=== PATIENT | male | born 1935 | race Caucasian/White ===

== ENCOUNTER 2018-11-03 16:49 | Inpatient (IN) | payer MEDICARE, MEDICAID ==
[~2018-11-03] VITALS: Ht 172.7 cm; Wt 72.6 kg
[2018-11-03 16:50] VITALS: BP 137/53
--- NOTE | 2018-11-03 16:50 | NUR ---
ED Nurse Note: PT BROUGHT IN BY [facility] DUE TO SOB AND PAINFUL COUGH X LAST NIGHT. RR16 WITH O2SAT 96% ON 3L VIA NC AT BEDSIDE. INSPIRATORY AND EXPIRATORY WHEEZING HEARD IN ALL LOBES. NO RETRACTIONS OR NO SIGNS OF RESPIRATORY DISTRESS NOTED.
--- NOTE | 2018-11-03 17:45 | NUR ---
ED Nurse Note: XRAY AT BEDSIDE. PT WOULD LIKE TO WAIT UNTIL SON ARRIVES TO DECIDE IF HE WANTS XRAY OR NOT. XRAY WILL RETURN AT LATER TIME PER PT REQUEST.
--- NOTE | 2018-11-03 17:59 | NUR ---
ED Nurse Note: XRAY CALLED TO RETURN FOR XRAY. WILL RETURN SHORTLY.
--- NOTE | 2018-11-03 18:07 | NUR ---
ED Nurse Note: RT CALLED FOR BREATHING TX.
[2018-11-03 18:12] LABS: ANION GAP 13 mmol/L (5-15); BLOOD UREA NITROGEN 21 mg/dL (7-18); CALCIUM 8.5 MG/DL (8.5-10.1); CARBON DIOXIDE 21 MMOL/L (21-32); CHLORIDE 102 MMOL/L (98-107); CREATININE 1.7 MG/DL (0.55-1.30); POTASSIUM 3.5 MMOL/L (3.5-5.1); SODIUM 136 MMOL/L (136-145)
[2018-11-03] MEDS ORDERED: Albuterol/Ipratropium 3ml neb HHN ONE (18:15)
[2018-11-03 18:19] LABS: HEMATOCRIT 30.9 % (42.0-52.0); HEMOGLOBIN 10.3 G/DL (14.2-18.0); MEAN CORPUSCULAR VOLUME 92 FL (80-99); PLATELET COUNT 126 K/UL (150-450); RED BLOOD COUNT 3.34 M/UL (4.70-6.10); RED CELL DISTRIBUTION WIDTH 13.9 % (11.6-14.8); WHITE BLOOD COUNT 20.4 K/UL (4.8-10.8)
[2018-11-03 18:25] LABS: ALANINE AMINOTRANSFERASE 26 U/L (12-78); ALBUMIN 3.2 G/DL (3.4-5.0); ALBUMIN/GLOBULIN RATIO 0.8 (1.0-2.7); ALKALINE PHOSPHATASE 61 U/L (46-116); ASPARTATE AMINO TRANSFERASE 17 U/L (15-37); BILIRUBIN,TOTAL 0.9 MG/DL (0.2-1.0); CKMB < 0.5 NG/ML (0.0-3.6); CREATINE KINASE 31 U/L (26-308); PHOSPHORUS 1.8 MG/DL (2.5-4.9)
[2018-11-03] MEDS ORDERED: Piperacillin/Tazobactam 3.375 GM in NS 110 ML IVPB ONE (18:45)
[2018-11-03] MEDS ORDERED: Oseltamivir 75mg cap ORAL ONE (18:45)
--- NOTE | 2018-11-03 19:01 | Emergency Room Report ---
History of Present Illness General Chief Complaint: Upper Respiratory Illness Source: Family Member Present Illness HPI Patient is an 83-year-old male brought in by EMS after increased cough and congestion. Patient was noted to have somewhat productive cough. He had prior history of congestive heart failure and had previous watchman procedure. Patient prior history of atrial fibrillation. He is currently taking digoxin. Patient is a type II diabetic as well. He was noted to have prior history of myelodysplastic syndrome. He does not normally have elevated white blood counts. Patient was noted to have onset of symptoms approximately 1 day prior to arrival. He was noted to have increased fever and chills chills and body aches. Allergies: Coded Allergies: No Known Allergies (Unverified , 11/03/18) Patient History Past Medical History: see triage record Reviewed Nursing Documentation: PMH: Agreed; PSxH: Agreed Nursing Documentation-PMH Hx Cardiac Problems: Yes Hx Hypertension: Yes - HIGH CHOLESTEROL Hx Diabetes: Yes Hx Cerebrovascular Accident: Yes Review of Systems All Other Systems: limited - by mental status Physical Exam Vital Signs Date Time Temp Pulse Resp B/P (MAP) Pulse Ox O2 Delivery O2 Flow Rate FiO2 11/03/18 16:45 101.1 104 20 132/63 97 Room Air 11/03/18 16:50 3.0 11/03/18 18:20 32 Sp02 EP Interpretation: reviewed, normal General Appearance: alert, GCS 15, Chronically Ill Head: atraumatic ENT: normal ENT inspection, hearing grossly normal, normal voice Neck: normal inspection, full range of motion, supple, no bony tend Respiratory: normal inspection, no retraction, rhonchi Cardiovascular #1: regular rate, rhythm, no edema Gastrointestinal: normal inspection, normal bowel sounds, non tender, soft, no guarding, no hernia Genitourinary: no CVA tenderness Musculoskeletal: normal inspection, back normal, normal range of motion Neurologic: normal inspection, alert, oriented x3, responsive, podiatric aide III-XII nml as tested, speech normal Psychiatric: normal inspection, judgement/insight normal, mood/affect normal Skin: normal inspection, normal color, no rash Medical Decision Making Diagnostic Impression: Primary Impression: Sepsis Additional Impressions: Influenza A CHF (congestive heart failure) CAD (coronary artery disease) Atrial fibrillation Pneumonia Myelodysplasia (myelodysplastic syndrome) ER Course Patient presented for shortness of breath. Differential included but was not limited to anemia, pneumonia, pneumothorax, myocardial infarction, pericardial effusion, congestive heart failure, acidosis. Because of complexity of patient' s case laboratory testing and imaging studies were ordered. EKG interpreted by me showed atrial fibrillation with a rate of [address] or T wave changes. Patient was noted to have some digoxin effect. QTC was noted to be slightly prolonged at 503. Patient was started on IV fluids as well as IV antibiotics. Patient was discussed with his primary care physician Dr. Ileana Rodríguez. Patient was noted to have prior history of congestive heart failure and takes digoxin regularly. He is also anticoagulated with Plavix. He has had single vessel stent placement. Patient was started on IV fluids. Lactic acid level was noted to be elevated. He is also given Tamiflu as well as antibiotics IV. Patient's was noted to have been exposed to influenza and will be given a prophylactic prescription for Tamiflu. Dr. Leonard Ortiz was contacted for inpatient management due to panel physician. Labs Test 11/03/18 17:49 White Blood Count 20.4 K/UL (4.8-10.8) Red Blood Count 3.34 M/UL (4.70-6.10) Hemoglobin 10.3 G/DL (14.2-18.0) Hematocrit 30.9 % (42.0-52.0) Mean Corpuscular Volume 92 FL (80-99) Mean Corpuscular Hemoglobin 30.9 PG (27.0-31.0) Mean Corpuscular Hemoglobin Concent 33.4 G/DL (32.0-36.0) Red Cell Distribution Width 13.9 % (11.6-14.8) Platelet Count 126 K/UL (150-450) Mean Platelet Volume 7.2 FL (6.5-10.1) Neutrophils (%) (Auto) % (45.0-75.0) Lymphocytes (%) (Auto) % (20.0-45.0) Monocytes (%) (Auto) % (1.0-10.0) Eosinophils (%) (Auto) % (0.0-3.0) Basophils (%) (Auto) % (0.0-2.0) Sodium Level 136 MMOL/L (136-145) Potassium Level 3.5 MMOL/L (3.5-5.1) Chloride Level 102 MMOL/L (98-107) Carbon Dioxide Level 21 MMOL/L (21-32) Anion Gap 13 mmol/L (5-15) Blood Urea Nitrogen 21 mg/dL (7-18) Creatinine 1.7 MG/DL (0.55-1.30) Estimat Glomerular Filtration Rate mL/min (>60) Glucose Level 277 MG/DL (74-106) Lactic Acid Level 3.70 mmol/L (0.4-2.0) Calcium Level 8.5 MG/DL (8.5-10.1) Phosphorus Level 1.8 MG/DL (2.5-4.9) Magnesium Level 0.9 MG/DL (1.8-2.4) Total Bilirubin 0.9 MG/DL (0.2-1.0) Aspartate Amino Transf (AST/SGOT) 17 U/L (15-37) Alanine Aminotransferase (ALT/SGPT) 26 U/L (12-78) Alkaline Phosphatase 61 U/L (46-116) Total Creatine Kinase 31 U/L (26-308) Creatine Kinase MB < 0.5 NG/ML (0.0-3.6) Creatine Kinase MB Relative Index 1.6 Troponin I 0.014 ng/mL (0.000-0.056) Total Protein 7.0 G/DL (6.4-8.2) Albumin 3.2 G/DL (3.4-5.0) Globulin 3.8 g/dL Albumin/Globulin Ratio 0.8 (1.0-2.7) EKG Diagnostic Results Rate: other - atrial fibrillation Rhythm: NSR Rhythm Strip Diag. Results EP Interpretation: yes Rhythm: no PVC's, no ectopy Last Vital Signs Date Time Temp Pulse Resp B/P (MAP) Pulse Ox O2 Delivery O2 Flow Rate FiO2 11/03/18 18:21 32 11/03/18 18:20 88 24 98 Nasal Cannula 11/03/18 16:50 3.0 11/03/18 16:50 99.1 137/53 Status: unchanged Disposition: ADMITTED INPATIENT Scripts Unable to Obtain Active Prescriptions or Reported Meds Referrals: NON PHYSICIAN (PCP) Hugh Khoury MD Nov 03, 2018 19:01
--- NOTE | 2018-11-03 19:16 | NUR ---
ED Nurse Note: REPORT GIVEN TO KEVIN TIJERINA.
--- NOTE | 2018-11-03 19:17 | NUR ---
ED Nurse Note: Received report from Wilton/KEVIN. Pt is A/O X 3. Waiting for bed to transfer.
[2018-11-03 22:10] LABS: APPEARANCE,URINE CLEAR; BILIRUBIN, URINE NEGATIVE (NEGATIVE); COLOR,URINE PALE YELLOW; GLUCOSE, URINE (UA) 4+ (NEGATIVE); KETONES,URINE NEGATIVE (NEGATIVE); LEUKOCYTE ESTERASE ,URINE NEGATIVE (NEGATIVE); NITRITE,URINE NEGATIVE (NEGATIVE); PH,URINE 5 (4.5-8.0); PROTEIN,URINE 2+ (NEGATIVE); UROBILINOGEN,URINE NORMAL MG/DL (0.0-1.0)
--- NOTE | 2018-11-03 22:35 | NUR ---
TRANSFER TO FLOOR: Patient transferred to / as ordered. Report given to Berenice/KEVIN. Belongings sent with Pt and rechecked with RN.
[2018-11-03 22:40] VITALS: BP 103/54
--- NOTE | 2018-11-03 22:53 | NUR ---
NURSE NOTES: NURSE NOTES: Received pt from KEVIN Waters. Pt awake, alert, and answering questions appropriately. Pts whole body is shaking and lab called with the pts lactic acid results of 4.0. Magnesium 0.9. Called and informed Dr. Ortiz. Skin intact. Pt has wet cough and is tachycardic. Will continue to monitor.
--- NOTE | 2018-11-03 23:00 | NUR ---
NURSE NOTES: Dr. Ortiz called back with the following orders: - Resume home orders - tamiflu 75 bid po - zosyn 3.375g iv q6 - vanco iv per pharm X7 days - levaquin 500mg po/gt qd X7 days - tylenol 650 mg Q4 prn - protonix 40mg qd - mylanta 30cc q4 prn - mom 30cc qd prn - 2gm mag sulfate iv over 1 hr - cbc, bmp in am - mag and chest xray - soft cardiac diet - 2 liters oxygen - heparin sq 5000 u bid Transfer to RUFINA KEVIN Roldan Will input orders and will continue to monitor.
[2018-11-03] MEDS ORDERED: Milk of Magnesia 30ml Ud ORAL PRN (23:45)
[2018-11-04 00:50] VITALS: BP 127/57
--- NOTE | 2018-11-04 00:50 | NUR ---
HAND-OFF: Report given to KEVIN Covarrubias. Pt stable.
--- NOTE | 2018-11-04 00:51 | NUR ---
NURSE NOTES: Received a patient in a stable condition,no c/o pain,no respiratory distress noted,tolerated r/air well,lungs diminished sound in an auscultation,BS active in all quadrants,A-Fib on a hospital monitor,A&O x4,IV intact,skin intact,pt is positive for Influenza A,bed in a low safety position,call light within a reach,will continue to monitor and follow POC.Belongings list signed.
[2018-11-04] MEDS ORDERED: Piperacillin/Tazobactam 3.375 GM in D5W 110 ML IVPB SCH (01:00)
--- NOTE | 2018-11-04 01:15 | History and Physical Report ---
DATE OF ADMISSION: 11/03/2018 PULMONARY EVALUATION: REASON FOR ADMISSION: Congestion heart failure, positive influenza, respiratory insufficiency. HISTORY: The patient is an 83-year-old male presents through the emergency room. The patient with increasing cough and congestion. The patient also with history of CHF and history of atrial fibrillation. The patient is a type 2 diabetic who is a fair historian. He does have history of myelodysplastic syndrome. The patient was seen and evaluated in the emergency room and did test positive for influenza. The patient currently being admitted for the above. The patient's events are fairly acute subacute in nature. PAST MEDICAL HISTORY: Influenza A positive presently, myelodysplastic syndrome, atrial fibrillation, CAD, and CHF. MEDICATIONS: Reviewed. ALLERGIES: Reviewed. SOCIAL HISTORY: Nonsmoker and nondrinker. The patient is retired. He is of [place] descent. PHYSICAL EXAMINATION: GENERAL: An ill-appearing male. VITAL SIGNS: Blood pressure 132/53, 103/91, saturation 98%, and respiratory rate 16. HEENT: Negative. Oropharynx not injected. NECK: Supple. LUNGS: Moderate breath sounds. Crackles on both bases. CARDIAC: Normal S1, S2. Soft systolic murmur. Regular rate and rhythm. ABDOMEN: Soft and nontender. EXTREMITIES: No cyanosis or clubbing. There is mild edema. NEUROLOGIC: Grossly nonfocal. LABORATORY DATA: Reviewed. White cell count 20, hematocrit 30.9, and platelets 126. Chemistries noted. BUN 21 and creatinine 1.7. Magnesium 0.9. Albumin 3.2. Lactic acid 3.7. IMPRESSION: CHF, atrial fibrillation, leukocytosis, possible pneumonia, positive influenza, thrombocytopenia, hypomagnesemia, mild protein-calorie malnutrition, probable chronic renal failure. RECOMMENDATIONS: Supportive care. Resume medications. Empiric antibiotics. Tamiflu. Isolation. Follow fluid status. Monitor renal function. Cardiology evaluation to assist. We will reassess and recommend further and we will follow clinically for further changes intervention and discharge once improved. Leonard Ortiz M.D. DR: RUBA JOB#: [id number] CC: SHANNON
[2018-11-04] MEDS: NS w/KCl 20mEq 1000ml 1,000 ML IV SCH ×3 (01:30→20:27)
[2018-11-04] MEDS ORDERED: Vancomycin 1.5gm/D5W Premix 250 ML IVPB SCH (02:00)
[2018-11-04] MEDS: Piperacillin/Tazobactam 2.25 GM in NS 55 ML IV SCH ×2 (02:22→05:55)
--- NOTE | 2018-11-04 03:30 | Consultation ---
DATE OF CONSULTATION: 11/03/2018 CARDIOLOGY CONSULT CONSULTING PHYSICIAN: Rony Butler M.D. REQUESTING PHYSICIAN: Leonard Ortiz M.D. and Russell Spears M.D. REASON FOR CONSULT: Congestive heart failure and atrial fibrillation in the setting of the influenza A, sepsis, and lactic acidosis. HISTORY OF PRESENT ILLNESS: This 83-year-old male came into the emergency room with cough and congestion. He was noted to have a positive influenza A swab. He had laboratory studies suggestive of significant comorbidities and abnormalities. I have been asked to assist with further care. The patient did not complain of any chest pain or shortness of breath. PAST MEDICAL HISTORY: 1. Myelodysplastic syndrome. 2. Paroxysmal atrial fibrillation. 3. Coronary artery disease with history of coronary stent. 4. Diastolic dysfunction with history of congestive heart failure. 5. Hypertension. 6. History of cerebrovascular accident. 7. Hyperlipidemia. ALLERGIES: None. MEDICATIONS: Prior to admission, reviewed and reconciled. FAMILY HISTORY: Noncontributory. REVIEW OF SYSTEMS: Not reliably obtained at this time due to patient's medical condition. PHYSICAL EXAMINATION: VITAL SIGNS: Temperature 101.1, blood pressure 132/63, pulse 104, respiratory rate 20, and room air oxygen saturation 97%. Ill-appearing. Monitored. Not with respiratory distress. Nasal drainage. LUNGS: Bilateral rhonchi. HEART: Irregularly irregular rhythm. Normal S1, S2. No murmur. ABDOMEN: Soft, nontender. EXTREMITIES: Good pulses. No edema. Capillary refill is diminished. LABORATORY DATA: White count 20, hemoglobin 10. Sodium 136, potassium 3.5, bicarbonate 21, BUN 21, creatinine 1.7. Glucose 277, lactic acid 3.7. Troponin 0.014, albumin 3.2. Magnesium level 0.9. EKG reveals atrial fibrillation, nonspecific ST-T wave changes. Chest x-ray pending. IMPRESSION: 1. Critical condition, guarded prognosis. 2. Influenza A pneumonia and sepsis. 3. History of myelodysplastic syndrome with immunocompromised state 4. Leukocytosis. 5. Paroxysmal atrial fibrillation with rapid ventricular response, physiologically appropriate at this time. 6. Coronary artery disease with history of coronary stent and stable angina. 7. Hypertensive heart disease with chronic diastolic congestive heart failure. 8. Lactic acidosis. 9. Acute on possibly chronic kidney failure. 10. Severe hypomagnesemia. 11. Mild protein-calorie malnutrition. 12. Thrombocytopenia. PLAN: 1. ICU care. 2. Saline hydration. 3. Tamiflu therapy. 4. Respiratory hygiene. 5. Isolation precautions. 6. Continue serial lactic acid levels. 7. Intravenous magnesium replacement. 8. Beta-blockade for rate control and antianginal benefits. 9. Hold anti-platelet and anticoagulant therapy in view of high bleeding risk. Rony Butler M.D. DR: KRISTINE JOB#: [id number] CC:
--- NOTE | 2018-11-04 07:09 | NUR ---
HAND-OFF: Report given to KEVIN Lee.Patient stable.
--- NOTE | 2018-11-04 07:10 | NUR ---
NURSE NOTES: Received patient from KEVIN Covarrubias. Patient in bed and awake. In room air. gambling monitor in placed. IV sites are asymptomatic and running NS w/ 20meqKCL at 100 cc/hour. Bed in lowest position with side rails up. Will continue to follow plan of care.
--- NOTE | 2018-11-04 07:39 | Pulmonology Progress Note ---
Assessment/Plan Assessment/Plan IMPRESSION: CHF, atrial fibrillation, leukocytosis, possible pneumonia, positive influenza, thrombocytopenia, hypomagnesemia, mild protein-calorie malnutrition, probable chronic renal failure. PLAN care noted iv antibiotics respiratory care oxygen monitor as is ID evaluation impression, plan, and exam edited and reviewed in detail care discussed with RN Subjective Allergies: Coded Allergies: No Known Allergies (Unverified , 11/03/18) Subjective care noted and reviewed cards noted Objective Last 24 Hour Vital Signs Date Time Temp Pulse Resp B/P (MAP) Pulse Ox O2 Delivery O2 Flow Rate FiO2 11/04/18 03:38 74 11/04/18 00:50 98.2 89 127/57 (80) 95 11/04/18 00:05 98.2 11/04/18 00:02 Room Air 11/03/18 23:14 94 11/03/18 22:40 100.3 104 103/54 (70) 98 11/03/18 22:30 99.0 95 20 131/61 95 Nasal Cannula 2.0 32 11/03/18 20:42 92 20 95 Nasal Cannula 2.0 32 11/03/18 18:21 32 11/03/18 18:20 88 24 98 Nasal Cannula 32 11/03/18 16:50 103 16 Nasal Cannula 3.0 11/03/18 16:50 99.1 103 16 137/53 98 Nasal Cannula 3.0 11/03/18 16:45 101.1 104 20 132/63 97 Room Air Intake and Output 11/03/18 11/04/18 19:00 07:00 Intake Total 1000 ml 1075 ml Output Total 200 ml Balance 1000 ml 875 ml Intake Oral 120 ml IV Total 1000 ml 955 ml Output Urine Total 200 ml # Voids 1 Objective PHYSICAL EXAMINATION: GENERAL: An ill-appearing male. HEENT: Negative. Oropharynx not injected. NECK: Supple. LUNGS: Moderate breath sounds. Crackles on both bases. CARDIAC: Normal S1, S2. Soft systolic murmur. Regular rate and rhythm. ABDOMEN: Soft and nontender. EXTREMITIES: No cyanosis or clubbing. There is mild edema. NEUROLOGIC: Grossly nonfocal. Microbiology Date/Time Source Procedure Growth Status 11/03/18 17:49 Nasal Nares Influenza Types A,B Antigen (ARLINE) - Final Complete Laboratory Tests 11/03/18 17:49: White Blood Count 20.4H, Red Blood Count 3.34L, Hemoglobin 10.3L, Hematocrit 30.9L, Mean Corpuscular Volume 92, Mean Corpuscular Hemoglobin 30.9, Mean Corpuscular Hemoglobin Concent 33.4, Red Cell Distribution Width 13.9, Platelet Count 126L, Mean Platelet Volume 7.2, Neutrophils (%) (Auto) , Lymphocytes (%) ( Auto) , Monocytes (%) (Auto) , Eosinophils (%) (Auto) , Basophils (%) (Auto) , Differential Total Cells Counted 100, Neutrophils % (Manual) 84H, Lymphocytes % (Manual) 5L, Monocytes % (Manual) 9, Eosinophils % (Manual) 0, Basophils % ( Manual) 0, Band Neutrophils 2, Platelet Estimate DecreasedL, Platelet Morphology Normal, Hypochromasia 1+, Anisocytosis 1+, Sodium Level 136, Potassium Level 3.5, Chloride Level 102, Carbon Dioxide Level 21, Anion Gap 13, Blood Urea Nitrogen 21H, Creatinine 1.7H, Estimat Glomerular Filtration Rate , Glucose Level 277H, Lactic Acid Level 3.70H, Calcium Level 8.5, Phosphorus Level 1.8L, Magnesium Level 0.9*L, Total Bilirubin 0.9, Aspartate Amino Transf ( AST/SGOT) 17, Alanine Aminotransferase (ALT/SGPT) 26, Alkaline Phosphatase 61, Total Creatine Kinase 31, Creatine Kinase MB < 0.5, Creatine Kinase MB Relative Index 1.6, Troponin I 0.014, Total Protein 7.0, Albumin 3.2L, Globulin 3.8, Albumin/Globulin Ratio 0.8L 11/03/18 21:40: Urine Color Pale yellow, Urine Appearance Clear, Urine pH 5, Urine Specific [place] 1.015, Urine Protein 2+H, Urine Glucose (UA) 4+H, Urine Ketones Negative , Urine Blood 1+H, Urine Nitrite Negative, Urine Bilirubin Negative, Urine Urobilinogen Normal, Urine Leukocyte Esterase Negative, Urine RBC 2-4H, Urine WBC 0-2, Urine Squamous Epithelial Cells None, Urine Bacteria Few 11/03/18 21:45: Lactic Acid Level 4.10H Current Medications Medications (Trade) Dose Ordered Sig/Regi Route PRN Reason Start Time Stop Time Status Last Admin Dose Admin Acetaminophen (Tylenol) 650 mg Q4H PRN ORAL Mild Pain/Temp > 100.5 11/03/18 23:45 12/03/18 23:44 11/04/18 00:35 Al Hydroxide/Mg Hydroxide (Mylanta) 30 ml Q4HR PRN ORAL Abdominal cramps 11/03/18 23:45 12/03/18 23:44 Heparin Sodium (Porcine) (Heparin 5000 units/ml) 5,000 units BID SUBQ 11/04/18 09:00 12/04/18 08:59 UNV Levofloxacin (Levaquin) 250 mg DAILY ORAL 11/05/18 09:00 11/12/18 08:59 Levofloxacin (Levaquin) 500 mg DAILY ORAL 11/04/18 09:00 11/04/18 09:01 Magnesium Hydroxide (Mom) 30 ml DAILYPRN PRN ORAL Constipation 11/03/18 23:45 12/03/18 23:44 Metoprolol Tartrate (Lopressor) 25 mg Q12HR ORAL 11/04/18 09:00 12/04/18 08:59 Oseltamivir Phosphate (Tamiflu) 75 mg BID ORAL 11/04/18 09:00 11/09/18 08:59 Pantoprazole (Protonix) 40 mg DAILY ORAL 11/04/18 09:00 12/04/18 08:59 Piperacillin Sod/ Tazobactam Sod 2.25 gm/Sodium Chloride 55 ml @ 110 mls/hr Q6H IV 11/04/18 00:10 11/11/18 00:09 11/04/18 05:55 Sodium Chloride 1,000 ml @ 100 mls/hr Q10H IV 11/04/18 00:15 12/04/18 00:14 11/04/18 01:30 Vancomycin HCl (Vanco rx to dose) 1 ea DAILY MISC 11/04/18 09:00 11/11/18 08:59 Vancomycin HCl/ Dextrose 250 ml @ 167 mls/hr Q24H IVPB 11/04/18 02:00 11/09/18 01:59 11/04/18 03:10 Leonard Ortiz MD Nov 04, 2018 07:39
[2018-11-04 07:55] LABS: HEMATOCRIT 29.1 % (42.0-52.0); HEMOGLOBIN 9.8 G/DL (14.2-18.0); MEAN CORPUSCULAR VOLUME 92 FL (80-99); PLATELET COUNT 112 K/UL (150-450); RED BLOOD COUNT 3.14 M/UL (4.70-6.10); RED CELL DISTRIBUTION WIDTH 14.5 % (11.6-14.8); WHITE BLOOD COUNT 17.6 K/UL (4.8-10.8)
[2018-11-04 08:00] VITALS: BP 115/53
[2018-11-04 08:07] LABS: ANION GAP 11 mmol/L (5-15); BLOOD UREA NITROGEN 22 mg/dL (7-18); CALCIUM 8.6 MG/DL (8.5-10.1); CARBON DIOXIDE 23 MMOL/L (21-32); CHLORIDE 101 MMOL/L (98-107); CREATININE 1.6 MG/DL (0.55-1.30); POTASSIUM 4.1 MMOL/L (3.5-5.1); SODIUM 135 MMOL/L (136-145)
[2018-11-04] MEDS: Metoprolol 25mg tab ORAL SCH ×2 (08:37→20:25)
--- NOTE | 2018-11-04 08:45 | NUR ---
NURSE NOTES: Left a message to Dr. Butler for Troponin 0.224. Awaiting for call back.
--- NOTE | 2018-11-04 08:46 | NUR ---
RADIOLOGY DEPT CHEST X-RAY DONE.-P.DYE
[2018-11-04] MEDS ORDERED: Levofloxacin 500mg tab ORAL SCH (09:00)
[2018-11-04] MEDS ORDERED: Oseltamivir 75mg cap ORAL SCH (09:00)
--- NOTE | 2018-11-04 09:01 | NUR ---
CASE MANAGEMENT NOTES PATIENT IS CURRENTLY ON HOME HEALTH WITH [facility] P:[phone] F:[phone]
[2018-11-04] MEDS: Heparin 5000 units/ml inj SUBQ SCH ×2 (10:43→20:24)
--- NOTE | 2018-11-04 11:17 | Diagnostic Imaging Report ---
Indication: Dyspnea Comparison: None A single view chest radiograph was obtained. Findings: Sternotomy noted. No definite infiltrate or pulmonary vascular congestion identified. The heart is enlarged. The aorta is mildly enlarged consistent with atherosclerotic vascular disease. The bones are osteopenic. Impression: No acute disease
--- NOTE | 2018-11-04 11:38 | Diagnostic Imaging Report ---
Indication: Cough Comparison: 11/03/2018 A single view chest radiograph was obtained. Findings: Slightly increasing right basilar density noted. Left basilar retrocardiac density also demonstrated. Heart size is stable. Sternotomy again noted. IMPRESSION: Query developing infiltrate in the right lung base. Correlate clinically. Recommend follow-up.
[2018-11-04 12:00] VITALS: BP 118/62
--- NOTE | 2018-11-04 14:18 | NUR ---
CASE MANAGEMENT: REVIEW 83/M BIBA FROM HOME CC: UPPER RESP ILLNESS SI: INFLUENZA . CHF . MYELODYSPLASIA T 101.1 HR 104 RR 24 BP 137/53 SAT 95% NC/3L WBC 20.4 NA 135 BUN 22 CR 1.6 TROPONIN I 0.224 IS: NS IVF BOLUS X1 ALBUTEROL HHN X1 TAMIFLU PO X1 ZOSYN IV X1 INTERQUAL CRITERIA MET: PATIENT ADMITTED TO STEP DOWN UNIT 11/03/2018 DCP: PATIENT IS FROM HOME
[2018-11-04 16:00] VITALS: BP 132/64
--- NOTE | 2018-11-04 16:15 | Consultation ---
DATE OF CONSULTATION: 11/04/2018 INFECTIOUS DISEASE CONSULTATION CONSULTING PHYSICIAN: Alayna Wolfe M.D. REFERRING PHYSICIAN: Leonard Ortiz M.D. REASON FOR CONSULTATION: Influenza A. HISTORY OF PRESENT ILLNESS: This is an 83-year-old gentleman with history of influenza A diagnosed recently, myelodysplastic syndrome, coronary artery disease, congestive heart failure, and atrial fibrillation, who came in with increasing cough and congestion. He was seen in the emergency room and was tested positive for influenza, and Infectious Disease consultation has been obtained for antibiotics. PAST MEDICAL HISTORY: 1. History of myelodysplastic syndrome. 2. Coronary artery disease. 3. Congestive heart failure. 4. Atrial fibrillation. 5. Influenza A. 6. Diabetes. SOCIAL HISTORY: He does not smoke, drink, or use drugs. FAMILY HISTORY: Unknown. REVIEW OF SYSTEMS: Unable to obtain currently. MEDICATIONS: As an inpatient, he is on Levaquin, Tamiflu, subcutaneous heparin, IV vancomycin, Protonix, metoprolol, Zosyn, Tylenol, Mylanta, and milk of magnesia. ALLERGIES: No known drug allergies. PHYSICAL EXAMINATION: VITAL SIGNS: Temperature 98.1, T-max of 101.1, pulse 67, respiratory rate 20, and blood pressure 115/53. O2 saturation of 93%. HEENT: Pupils are equally reactive to light and accommodation. Mouth appears clean without thrush. NECK: Supple. No adenopathy. No JVD. CARDIOVASCULAR: Regular rate and rhythm. No murmurs. LUNGS: Clear to auscultation bilaterally. No crackles. No wheezes. ABDOMEN: Soft and nontender. No organomegaly. EXTREMITIES: No cyanosis, no clubbing, no edema. LABORATORY AND DIAGNOSTIC DATA: White count of 20 on 11/03/2018. White count of 17.6 on 11/04/2018, hemoglobin 9.8, hematocrit 29.1, MCV 92, and platelet count 112,000. Neutrophils of 82%. Sodium 135, potassium 4.1, chloride 101, bicarb 23, BUN 22, and creatinine 1.6. Glucose 283. Calcium 8.6. 0.224. Total bilirubin 0.9, AST 17, ALT 26, and alkaline phosphatase 61. CK of 31, CK-MB less than 0.5. Troponin 0.014. Total protein 7, albumin 3.2. UA showing 0 to 2 white cells. Nasal swab was positive for influenza A. ASSESSMENT: This is an 83-year-old gentleman with history of myelodysplastic syndrome, hypertension, hypercholesterolemia, and diabetes, who comes in with cough and is found to have, 1. Influenza A upper respiratory infection. 2. Diabetes. 3. Myelodysplastic syndrome. PLAN: 1. Continue Tamiflu. 2. Continue Levaquin. 3. Continue vancomycin. 4. Discontinue Zosyn. 5. We will order sputum for Gram stain and culture. 6. We will follow up cultures and adjust antibiotics accordingly. I would like to thank, Dr. Ortiz, for this consultation. Alayna Wolfe M.D. DR: SIERRA JOB#: [id number] CC:
[2018-11-04] MEDS: NovoLOG Insulin Flexpen SUBQ SCH ×2 (16:39→20:25)
--- NOTE | 2018-11-04 18:15 | Consultation ---
DATE OF CONSULTATION: 11/04/2018 NEPHROLOGY CONSULTATION CONSULTING PHYSICIAN: Axel Meyers M.D. ATTENDING PHYSICIAN: Leonard Ortiz M.D. REASON FOR CONSULTATION: Elevated BUN and creatinine. HISTORY OF PRESENT ILLNESS: This is an 83-year-old male who was admitted due to cough and congestion and turned out to have influenza. I am asked to see the patient for elevation of BUN and creatinine. The patient is rather a poor historian. PAST MEDICAL HISTORY: 1. Myelodysplastic syndrome. 2. Chronic atrial fibrillation. 3. Coronary artery disease. 4. Congestive heart failure. MEDICATIONS: 1. Intermittent magnesium sulfate IV piggyback. 2. IV fluid. 3. IV Zosyn. 4. Vancomycin. 5. Tylenol p.r.n. 6. Klonopin. 7. DuoNeb inhalation. 8. Subcutaneous heparin. 9. IV Levaquin. 10. Metoprolol slow-release. 11. Mylanta. 12. Tamiflu. 13. Protonix. ALLERGIES: No known drug allergies. FAMILY HISTORY: Unremarkable. SOCIAL HISTORY: The patient lives at home. HABITS: He is nonsmoker and nondrinker. There is no history of illicit drug abuse. REVIEW OF SYSTEMS: HEENT: Hearing and eyesight are normal. ENDOCRINE: No history of diabetes, thyroid or adrenal problems. GENITOURINARY: He denies dysuria, frequency, urgency, or hematuria. NEUROLOGIC: No history of stroke, syncope, or Parkinson disease. CARDIOVASCULAR: Denies chest pain or palpitations. PHYSICAL EXAMINATION: GENERAL: This is an elderly male, who is in no acute distress. VITAL SIGNS: Blood pressure 118/62, pulse 74 and irregular, respirations 18, and temperature 97 axillary. HEENT: The head is normocephalic and atraumatic. Pupils are equal, round, and reactive to light and accommodation consensually. NECK: Supple. Trachea midline. There was no lymphadenopathy or thyromegaly. LUNGS: Clear to auscultation and percussion. HEART: Irregularly irregular. ABDOMEN: Soft and nontender. Bowel sounds were active. EXTREMITIES: No clubbing, cyanosis, or edema. NEUROLOGICAL: He is alert and oriented x4. Cranial nerves II through XII intact. LABORATORY AND ANCILLARY DATA: Electrolytes within normal limits. BUN 22, creatinine 1.6. Chest x-ray with slightly increasing right basilar density, retrocardiac density. EKG, atrial fibrillation. ASSESSMENT: 1. Most likely chronic kidney disease, etiology unclear. 2. Myelodysplastic syndrome. 3. Chronic atrial fibrillation. 4. Coronary artery disease. 5. Congestive heart failure. PLAN: 1. Repeat chemistry. 2. Obtain renal ultrasound. Thank you, Dr. Ortiz, for letting me to participate in the care of this patient. Axel Meyers M.D. DR: Sona JOB#: [id number] CC: SHANNON
--- NOTE | 2018-11-04 18:45 | Progress Note ---
DATE: 11/04/2018 CARDIOLOGY PROGRESS NOTE: SUBJECTIVE: The patient remains in atrial fibrillation with better rate control. He is on antimicrobials and respiratory hygiene. He continues with IV fluid hydration and cardiac monitoring. Lactic acid levels have normalized. PHYSICAL EXAMINATION: VITAL SIGNS: Blood pressure 118/62, pulse 74, respiratory rate 18, and afebrile. LUNGS: Coarse breath sounds. Scattered rhonchi. HEART: Irregularly irregular rhythm. Normal S1, S2. ABDOMEN: Soft. EXTREMITIES: Trace edema. LABORATORY DATA: Sodium 135, potassium 4.1, bicarbonate 23, BUN 22, creatinine 1.6, and glucose 283. Troponin 0.224. White count has decreased from 20 to 17.6, hemoglobin 9.8, and platelet count 112,000. IMPRESSION: 1. Influenza upper respiratory infection and possible pneumonia. 2. Myelodysplastic syndrome. 3. Type 2 diabetes mellitus. 4. Acute myocardial ischemia. 5. Paroxysmal atrial fibrillation. 6. Chronic diastolic congestive heart failure. 7. Acute kidney injury, resolved. 8. Lactic acidosis. PLAN: 1. Adjust IV fluids. 2. Continue antivirals. 3. Respiratory hygiene. 4. Continue beta-samuel. 5. No anti-platelet or anticoagulation due to bleeding risk with myelodysplastic syndrome and thrombocytopenia. 6. Continue cardiac monitoring. 7. We will follow. Rony Butler M.D. DR: HORTENCIA JOB#: [id number] CC:
--- NOTE | 2018-11-04 19:15 | NUR ---
NURSE NOTES: Bedside report received from KEVIN Lee. Pt currently receiving ABD US at bedside. AOx4, able to make needs known. LFA 22 running NS 20 meq KCl @ 100; asymptomatic. LW 22, SL. court recording monitor showing afib, controlled; asymptomatic. Skin is clean and dry. Bed is locked in lowest position, side rails x3, bed alarm on, call mcgowan within reach. Will continue to monitor and follow plan of care. Luke aware of troponin, additional troponin ordered for tomorrow AM. Pt on antibiotics for increased WBC.
[2018-11-04 20:00] VITALS: BP 114/52
[2018-11-05] VITALS: BP 140/69
[2018-11-05] MEDS ORDERED: Vancomycin 500mg/D5W 110ml IVPB SCH ×2 (03:00)
[2018-11-05 04:00] VITALS: BP 152/66
[2018-11-05 05:48] LABS: BASOPHILS % (AUTO) 0.3 % (0.0-2.0); EOSINOPHILS % (AUTO) 0.8 % (0.0-3.0); HEMATOCRIT 27.7 % (42.0-52.0); LYMPHOCYTES % (AUTO) 18.3 % (20.0-45.0); MEAN CORPUSCULAR VOLUME 93 FL (80-99); MONOCYTES % (AUTO) 7.9 % (1.0-10.0); NEUTROPHILS % (AUTO) 72.7 % (45.0-75.0); PLATELET COUNT 101 K/UL (150-450); RED BLOOD COUNT 2.96 M/UL (4.70-6.10); RED CELL DISTRIBUTION WIDTH 13.8 % (11.6-14.8); WHITE BLOOD COUNT 7.3 K/UL (4.8-10.8)
[2018-11-05] MEDS: NovoLOG Insulin Flexpen SUBQ SCH ×4 (06:27→20:31)
[2018-11-05] MEDS: NS w/KCl 20mEq 1000ml 1,000 ML IV SCH ×3 (06:28→20:36)
[2018-11-05 06:30] LABS: ANION GAP 10 mmol/L (5-15); BLOOD UREA NITROGEN 26 mg/dL (7-18); CALCIUM 8.5 MG/DL (8.5-10.1); CARBON DIOXIDE 22 MMOL/L (21-32); CHLORIDE 107 MMOL/L (98-107); CREATININE 1.5 MG/DL (0.55-1.30); POTASSIUM 4.3 MMOL/L (3.5-5.1); SODIUM 139 MMOL/L (136-145)
--- NOTE | 2018-11-05 07:10 | NUR ---
NURSE NOTES: Paged Dr. Butler regarding Troponin. Awaiting orders. Will continue to monitor and follow plan of care.
--- NOTE | 2018-11-05 07:14 | NUR ---
HAND-OFF: Report given to KEVIN Lee.
--- NOTE | 2018-11-05 07:15 | NUR ---
NURSE NOTES: Received patient from KEVIN Pena. Patient in bed and asleep. In room air. No SOB. Respirations are even and unlaboured. personnel monitor in placed. IV sites are asymptomatic, currently running NS with 20meqKCL at 100cc/hour. Troponin is trending up 0.342, Per PM nurse will paged Dr. Butler. Bed in lowest position with side rails up. Will continue to follow plan of care.
--- NOTE | 2018-11-05 07:41 | General Progress Note ---
Assessment/Plan Problem List: (1) Influenza A ICD Codes: J10.1 - Influenza due to other identified influenza virus with other respiratory manifestations SNOMED: 638031999 (2) Myelodysplasia (myelodysplastic syndrome) ICD Codes: D46.9 - Myelodysplastic syndrome, unspecified SNOMED: 879091190 (3) Atrial fibrillation ICD Codes: I48.91 - Unspecified atrial fibrillation SNOMED: 93074524 (4) CHF (congestive heart failure) ICD Codes: I50.9 - Heart failure, unspecified SNOMED: 63524439 (5) CAD (coronary artery disease) ICD Codes: I25.10 - Atherosclerotic heart disease of [place] coronary artery without angina pectoris SNOMED: 67814502 (6) Pneumonia ICD Codes: J18.9 - Pneumonia, unspecified organism SNOMED: 025379826 (7) Sepsis ICD Codes: A41.9 - Sepsis, unspecified organism SNOMED: 29401794 Status: stable, progressing Assessment/Plan tamiflu iv abx resp rx scd Subjective ROS Limited/Unobtainable: No Constitutional: Reports: malaise, weakness HEENT: Reports: no symptoms Cardiovascular: Reports: no symptoms Respiratory: Reports: cough Gastrointestinal/Abdominal: Reports: no symptoms Genitourinary: Reports: no symptoms Neurologic/Psychiatric: Reports: no symptoms Endocrine: Reports: no symptoms Hematologic/Lymphatic: Reports: no symptoms Allergies: Coded Allergies: No Known Allergies (Unverified , 11/03/18) All Systems: reviewed and negative except above Subjective no events. no complaints. feeling "better" today. decreased cough and congestion. cxr yesterday shows new RLL infiltrate Objective Last 24 Hour Vital Signs Date Time Temp Pulse Resp B/P (MAP) Pulse Ox O2 Delivery O2 Flow Rate FiO2 11/05/18 04:00 98.0 67 20 152/66 (94) 94 11/05/18 04:00 67 11/05/18 00:18 98.7 11/05/18 00:00 79 11/05/18 00:00 98.7 74 20 140/69 (92) 94 11/04/18 20:25 79 114/52 11/04/18 20:00 75 11/04/18 20:00 99.8 79 24 114/52 (72) 92 11/04/18 16:00 Room Air 11/04/18 16:00 98.2 77 20 132/64 (86) 93 11/04/18 15:41 74 11/04/18 12:00 97.0 74 18 118/62 (80) 93 11/04/18 12:00 Room Air 11/04/18 11:53 74 11/04/18 08:37 67 115/53 11/04/18 08:00 98.1 67 20 115/53 (73) 93 11/04/18 08:00 Room Air 11/04/18 07:55 67 Intake and Output 11/04/18 11/05/18 18:59 06:59 Intake Total 2003.33 ml 1150 ml Balance 2003.33 ml 1150 ml Intake Oral 340 ml 240 ml IV Total 1663.33 ml 910 ml # Voids 2 2 Laboratory Tests 11/05/18 04:00: White Blood Count 7.3#, Red Blood Count 2.96L, Hemoglobin 9.0L, Hematocrit 27.7L , Mean Corpuscular Volume 93, Mean Corpuscular Hemoglobin 30.3, Mean Corpuscular Hemoglobin Concent 32.4, Red Cell Distribution Width 13.8, Platelet Count 101L, Mean Platelet Volume 7.2, Neutrophils (%) (Auto) 72.7, Lymphocytes ( %) (Auto) 18.3L, Monocytes (%) (Auto) 7.9, Eosinophils (%) (Auto) 0.8, Basophils (%) (Auto) 0.3, Sodium Level 139, Potassium Level 4.3, Chloride Level 107, Carbon Dioxide Level 22, Anion Gap 10, Blood Urea Nitrogen 26H, Creatinine 1.5H, Estimat Glomerular Filtration Rate , Glucose Level 166#H, Calcium Level 8.5, Magnesium Level 1.6L, Troponin I 0.342H Height (Feet): 5 Height (Inches): 8.00 Weight (Pounds): 160 General Appearance: WD/WN, alert Neck: supple Cardiovascular: regular rhythm Respiratory/Chest: chest wall non-tender, lungs clear, normal breath sounds, no respiratory distress Abdomen: normal bowel sounds, non tender, soft, no organomegaly Edema: no edema noted Arm (L), no edema noted Arm (R), no edema noted Leg (L), no edema noted Leg (R), no edema noted Pedal (L), no edema noted Pedal (R), no edema noted Generalized Neurologic: senior receptionist II-XII grossly normal, alert, oriented x 3, responsive Russell Spears MD Nov 05, 2018 07:41
[2018-11-05 08:00] VITALS: BP 122/77
--- NOTE | 2018-11-05 08:00 | NUR ---
NURSE NOTES: Notified Dr. Spears about Platelet trending down and currently at 101. Received order to DC Heparin and carried out. Also notified him about Magnesium 1.6
[2018-11-05] MEDS: Metoprolol 25mg tab ORAL SCH ×2 (09:05→20:30)
--- NOTE | 2018-11-05 09:51 | Diagnostic Imaging Report ---
Indication:Elevated Bun and Creatinine. Technique: Grayscale and duplex Doppler imaging of the kidneys performed. Comparison: None Findings: The size, contour, and echogenicity of both kidneys are within normal limits. Both kidneys measure between 12 and 13 cm in length There is no hydronephrosis. The urinary bladder wall is moderately thickened. There is a cyst in the left kidney 1.6 cm. IVC is unremarkable. IMPRESSION: No evidence of obstructive nephropathy. Negative examination of the kidneys. Left renal cyst noted. Thickened urinary bladder wall. Correlate clinically for cystitis.
--- NOTE | 2018-11-05 10:47 | Infectious Diseases Prog Note ---
Assessment/Plan Assessment/Plan antibiotics : 1.15. vancomycin iv, levoquin - 1.14.19 tamiflu - A 1. influenza A URI 2. pneumonia 3. leucocytosis resolved 4. MDS 4. diabetes mellitus P 1. continue vancomycin iv, levoquin 2. continue tamiflu 2 more days 3. will follow up cultures Subjective Constitutional: Denies: fever, chills Respiratory: Reports: shortness of breath, dry cough Gastrointestinal/Abdominal: Denies: nausea, vomiting, diarrhea Musculoskeletal: Denies: pain Allergies: Coded Allergies: No Known Allergies (Unverified , 11/03/18) Objective Vital Signs Last 24 Hour Vital Signs Date Time Temp Pulse Resp B/P (MAP) Pulse Ox O2 Delivery O2 Flow Rate FiO2 11/05/18 09:05 66 122/77 11/05/18 08:00 97.9 66 20 122/77 (92) 95 11/05/18 08:00 Room Air 11/05/18 07:32 72 11/05/18 04:00 98.0 67 20 152/66 (94) 94 11/05/18 04:00 67 11/05/18 00:18 98.7 11/05/18 00:00 79 11/05/18 00:00 98.7 74 20 140/69 (92) 94 11/04/18 20:25 79 114/52 11/04/18 20:00 75 11/04/18 20:00 99.8 79 24 114/52 (72) 92 11/04/18 16:00 Room Air 11/04/18 16:00 98.2 77 20 132/64 (86) 93 11/04/18 15:41 74 11/04/18 12:00 97.0 74 18 118/62 (80) 93 11/04/18 12:00 Room Air 11/04/18 11:53 74 Height (Feet): 5 Height (Inches): 8.00 Weight (Pounds): 160 Respiratory/Chest: lungs clear Cardiovascular: normal rate, regular rhythm, no gallop/murmur Abdomen: soft, non tender Extremities: no edema Microbiology Date/Time Source Procedure Growth Status 11/03/18 17:45 Blood Blood Culture - Preliminary NO GROWTH AFTER 24 HOURS Resulted 11/03/18 17:30 Blood Blood Culture - Preliminary NO GROWTH AFTER 24 HOURS Resulted 11/03/18 17:49 Nasal Nares Influenza Types A,B Antigen (ARLINE) - Final Complete Laboratory Tests Test 11/05/18 04:00 White Blood Count 7.3 K/UL (4.8-10.8) # Red Blood Count 2.96 M/UL (4.70-6.10) L Hemoglobin 9.0 G/DL (14.2-18.0) L Hematocrit 27.7 % (42.0-52.0) L Mean Corpuscular Volume 93 FL (80-99) Mean Corpuscular Hemoglobin 30.3 PG (27.0-31.0) Mean Corpuscular Hemoglobin Concent 32.4 G/DL (32.0-36.0) Red Cell Distribution Width 13.8 % (11.6-14.8) Platelet Count 101 K/UL (150-450) L Mean Platelet Volume 7.2 FL (6.5-10.1) Neutrophils (%) (Auto) 72.7 % (45.0-75.0) Lymphocytes (%) (Auto) 18.3 % (20.0-45.0) L Monocytes (%) (Auto) 7.9 % (1.0-10.0) Eosinophils (%) (Auto) 0.8 % (0.0-3.0) Basophils (%) (Auto) 0.3 % (0.0-2.0) Sodium Level 139 MMOL/L (136-145) Potassium Level 4.3 MMOL/L (3.5-5.1) Chloride Level 107 MMOL/L (98-107) Carbon Dioxide Level 22 MMOL/L (21-32) Anion Gap 10 mmol/L (5-15) Blood Urea Nitrogen 26 mg/dL (7-18) H Creatinine 1.5 MG/DL (0.55-1.30) H Estimat Glomerular Filtration Rate mL/min (>60) Glucose Level 166 MG/DL (74-106) #H Calcium Level 8.5 MG/DL (8.5-10.1) Magnesium Level 1.6 MG/DL (1.8-2.4) L Troponin I 0.342 ng/mL (0.000-0.056) Current Medications Medications (Trade) Dose Ordered Sig/Regi Route PRN Reason Start Time Stop Time Status Last Admin Dose Admin Acetaminophen (Tylenol) 650 mg Q4H PRN ORAL Mild Pain/Temp > 100.5 11/03/18 23:45 12/03/18 23:44 11/04/18 23:48 Al Hydroxide/Mg Hydroxide (Mylanta) 30 ml Q4HR PRN ORAL Abdominal cramps 11/03/18 23:45 12/03/18 23:44 Dextrose (Dextrose 50%) 25 ml Q30M PRN IV Hypoglycemia 11/04/18 13:15 12/04/18 13:14 Dextrose (Dextrose 50%) 50 ml Q30M PRN IV Hypoglycemia 11/04/18 13:15 12/04/18 13:14 Insulin Aspart (NovoLOG) BEFORE MEALS AND HS SUBQ 11/04/18 16:30 12/04/18 16:29 11/05/18 06:27 Levofloxacin (Levaquin) 250 mg DAILY ORAL 11/05/18 09:00 11/12/18 08:59 11/05/18 09:05 Magnesium Hydroxide (Mom) 30 ml DAILYPRN PRN ORAL Constipation 11/03/18 23:45 12/03/18 23:44 Metoprolol Tartrate (Lopressor) 25 mg Q12HR ORAL 11/04/18 09:00 12/04/18 08:59 11/05/18 09:05 Oseltamivir Phosphate (Tamiflu) 30 mg BID ORAL 11/04/18 18:00 11/08/18 18:01 11/05/18 09:05 Pantoprazole (Protonix) 40 mg DAILY ORAL 11/04/18 09:00 12/04/18 08:59 11/05/18 09:05 Sodium Chloride 1,000 ml @ 100 mls/hr Q10H IV 11/04/18 00:15 12/04/18 00:14 11/05/18 06:28 Vancomycin HCl (Vanco rx to dose) 1 ea DAILY MISC 11/04/18 09:00 11/11/18 08:59 Vancomycin HCl 500 mg/Dextrose 110 ml @ 110 mls/hr Q24H IVPB 11/05/18 03:00 11/10/18 02:59 11/05/18 02:11 Alayna Wolfe MD Nov 05, 2018 10:47
[2018-11-05 12:00] VITALS: BP 142/67
--- NOTE | 2018-11-05 12:47 | Nephrology Progress Note ---
Assessment/Plan Plan CKD III stable. Renal US noted. Subjective Subjective No new c/o Objective Objective Last 24 Hour Vital Signs Date Time Temp Pulse Resp B/P (MAP) Pulse Ox O2 Delivery O2 Flow Rate FiO2 11/05/18 09:05 66 122/77 11/05/18 08:00 97.9 66 20 122/77 (92) 95 11/05/18 08:00 Room Air 11/05/18 07:32 72 11/05/18 04:00 98.0 67 20 152/66 (94) 94 11/05/18 04:00 67 11/05/18 00:18 98.7 11/05/18 00:00 79 11/05/18 00:00 98.7 74 20 140/69 (92) 94 11/04/18 20:25 79 114/52 11/04/18 20:00 75 11/04/18 20:00 99.8 79 24 114/52 (72) 92 11/04/18 16:00 Room Air 11/04/18 16:00 98.2 77 20 132/64 (86) 93 11/04/18 15:41 74 Intake and Output 11/04/18 11/05/18 19:00 07:00 Intake Total 1903.33 ml 1150 ml Balance 1903.33 ml 1150 ml Intake Oral 340 ml 240 ml IV Total 1563.33 ml 910 ml # Voids 2 2 Laboratory Tests 11/05/18 04:00: White Blood Count 7.3#, Red Blood Count 2.96L, Hemoglobin 9.0L, Hematocrit 27.7L , Mean Corpuscular Volume 93, Mean Corpuscular Hemoglobin 30.3, Mean Corpuscular Hemoglobin Concent 32.4, Red Cell Distribution Width 13.8, Platelet Count 101L, Mean Platelet Volume 7.2, Neutrophils (%) (Auto) 72.7, Lymphocytes ( %) (Auto) 18.3L, Monocytes (%) (Auto) 7.9, Eosinophils (%) (Auto) 0.8, Basophils (%) (Auto) 0.3, Sodium Level 139, Potassium Level 4.3, Chloride Level 107, Carbon Dioxide Level 22, Anion Gap 10, Blood Urea Nitrogen 26H, Creatinine 1.5H, Estimat Glomerular Filtration Rate , Glucose Level 166#H, Calcium Level 8.5, Magnesium Level 1.6L, Troponin I 0.342H Height (Feet): 5 Height (Inches): 8.00 Weight (Pounds): 160 Objective CV RR Lungs CTA Abd SNT. BS + E No CCE Axel Meyers MD Nov 05, 2018 12:47
--- NOTE | 2018-11-05 14:39 | NUR ---
CASE MANAGEMENT: REVIEW SI: INFLUENZA . CHF . MYELODYSPLASIA T 97.6 HR 58 RR 21 BP 142/67 SAT 93% ROOM AIR H/H 9.0/27.7 BUN 26 CR 1.5 TROPONIN I 0.342 IS: LEVAQUIN PO QD VANCO IV Q24HR TAMIFLU PO BID NOVOLOG SQ AC/HR LOPRESSOR PO Q12HR STEP DOWN UNIT STATUS DCP: PATIENT IS FROM HOME
[2018-11-05] MEDS ORDERED: NS 275ml ONE ×2 (14:51→14:53)
[2018-11-05] MEDS ORDERED: Tubing IV Secondary IV ONE ×2 (14:51→14:53)
--- NOTE | 2018-11-05 15:55 | Pulmonology Progress Note ---
Assessment/Plan Assessment/Plan Pulmonary Progress Note Assessment/Plan IMPRESSION: CHF, atrial fibrillation, leukocytosis, possible pneumonia, positive influenza, thrombocytopenia, hypomagnesemia, mild protein-calorie malnutrition, probable chronic renal failure. PLAN care noted iv antibiotics respiratory care oxygen monitor as is ID evaluation impression, plan, and exam edited and reviewed in detail care discussed with RN Subjective Allergies: Coded Allergies: No Known Allergies (Unverified , 11/03/18) Subjective care noted and reviewed cards noted Objective Vital Signs Noted Objective PHYSICAL EXAMINATION: GENERAL: An ill-appearing male. HEENT: Negative. Oropharynx not injected. NECK: Supple. LUNGS: Moderate breath sounds. Crackles on both bases. CARDIAC: Normal S1, S2. Soft systolic murmur. Regular rate and rhythm. ABDOMEN: Soft and nontender. EXTREMITIES: No cyanosis or clubbing. There is mild edema. NEUROLOGIC: Grossly nonfocal. Microbiology Date/Time Source Procedure Growth Status 11/03/18 17:49 Nasal Nares Influenza Types A,B Antigen (ARLINE) - Final Complete Laboratory Tests 11/03/18 17:49: White Blood Count 20.4H, Red Blood Count 3.34L, Hemoglobin 10.3L, Hematocrit 30.9L, Mean Corpuscular Volume 92, Mean Corpuscular Hemoglobin 30.9, Mean Corpuscular Hemoglobin Concent 33.4, Red Cell Distribution Width 13.9, Platelet Count 126L, Mean Platelet Volume 7.2, Neutrophils (%) (Auto) , Lymphocytes (%) ( Auto) , Monocytes (%) (Auto) , Eosinophils (%) (Auto) , Basophils (%) (Auto) , Differential Total Cells Counted 100, Neutrophils % (Manual) 84H, Lymphocytes % (Manual) 5L, Monocytes % (Manual) 9, Eosinophils % (Manual) 0, Basophils % ( Manual) 0, Band Neutrophils 2, Platelet Estimate DecreasedL, Platelet Morphology Normal, Hypochromasia 1+, Anisocytosis 1+, Sodium Level 136, Potassium Level 3.5, Chloride Level 102, Carbon Dioxide Level 21, Anion Gap 13, Blood Urea Nitrogen 21H, Creatinine 1.7H, Estimat Glomerular Filtration Rate , Glucose Level 277H, Lactic Acid Level 3.70H, Calcium Level 8.5, Phosphorus Level 1.8L, Magnesium Level 0.9*L, Total Bilirubin 0.9, Aspartate Amino Transf ( AST/SGOT) 17, Alanine Aminotransferase (ALT/SGPT) 26, Alkaline Phosphatase 61, Total Creatine Kinase 31, Creatine Kinase MB < 0.5, Creatine Kinase MB Relative Index 1.6, Troponin I 0.014, Total Protein 7.0, Albumin 3.2L, Globulin 3.8, Albumin/Globulin Ratio 0.8L 11/03/18 21:40: Urine Color Pale yellow, Urine Appearance Clear, Urine pH 5, Urine Specific [place] 1.015, Urine Protein 2+H, Urine Glucose (UA) 4+H, Urine Ketones Negative , Urine Blood 1+H, Urine Nitrite Negative, Urine Bilirubin Negative, Urine Urobilinogen Normal, Urine Leukocyte Esterase Negative, Urine RBC 2-4H, Urine WBC 0-2, Urine Squamous Epithelial Cells None, Urine Bacteria Few 11/03/18 21:45: Lactic Acid Level 4.10H Current Medications Medications (Trade) Dose Ordered Sig/Regi Route PRN Reason Start Time Stop Time Status Last Admin Dose Admin Acetaminophen (Tylenol) 650 mg Q4H PRN ORAL Mild Pain/Temp > 100.5 11/03/18 23:45 12/03/18 23:44 11/04/18 00:35 Al Hydroxide/Mg Hydroxide (Mylanta) 30 ml Q4HR PRN ORAL Abdominal cramps 11/03/18 23:45 12/03/18 23:44 Heparin Sodium (Porcine) (Heparin 5000 units/ml) 5,000 units BID SUBQ 11/04/18 09:00 12/04/18 08:59 UNV Levofloxacin (Levaquin) 250 mg DAILY ORAL 11/05/18 09:00 11/12/18 08:59 Levofloxacin (Levaquin) 500 mg DAILY ORAL 11/04/18 09:00 11/04/18 09:01 Magnesium Hydroxide (Mom) 30 ml DAILYPRN PRN ORAL Constipation 11/03/18 23:45 12/03/18 23:44 Metoprolol Tartrate (Lopressor) 25 mg Q12HR ORAL 11/04/18 09:00 12/04/18 08:59 Oseltamivir Phosphate (Tamiflu) 75 mg BID ORAL 11/04/18 09:00 11/09/18 08:59 Pantoprazole (Protonix) 40 mg DAILY ORAL 11/04/18 09:00 12/04/18 08:59 Piperacillin Sod/ Tazobactam Sod 2.25 gm/Sodium Chloride 55 ml @ 110 mls/hr Q6H IV 11/04/18 00:10 11/11/18 00:09 11/04/18 05:55 Sodium Chloride 1,000 ml @ 100 mls/hr Q10H IV 11/04/18 00:15 12/04/18 00:14 11/04/18 01:30 Vancomycin HCl (Vanco rx to dose) 1 ea DAILY MISC 11/04/18 09:00 11/11/18 08:59 Vancomycin HCl/ Dextrose 250 ml @ 167 mls/hr Q24H IVPB 11/04/18 02:00 11/09/18 01:59 11/04/18 03:10 Subjective ROS Limited/Unobtainable: No Allergies: Coded Allergies: No Known Allergies (Unverified , 11/03/18) Objective Last 24 Hour Vital Signs Date Time Temp Pulse Resp B/P (MAP) Pulse Ox O2 Delivery O2 Flow Rate FiO2 11/05/18 12:00 97.9 58 21 142/67 (92) 93 11/05/18 11:35 61 11/05/18 09:05 66 122/77 11/05/18 08:00 97.9 66 20 122/77 (92) 95 11/05/18 08:00 Room Air 11/05/18 07:32 72 11/05/18 04:00 98.0 67 20 152/66 (94) 94 11/05/18 04:00 67 11/05/18 00:18 98.7 11/05/18 00:00 79 11/05/18 00:00 98.7 74 20 140/69 (92) 94 11/04/18 20:25 79 114/52 11/04/18 20:00 75 11/04/18 20:00 99.8 79 24 114/52 (72) 92 11/04/18 16:00 Room Air 11/04/18 16:00 98.2 77 20 132/64 (86) 93 Intake and Output 11/04/18 11/05/18 19:00 07:00 Intake Total 1903.33 ml 1203.333 ml Balance 1903.33 ml 1203.333 ml Intake Oral 340 ml 240 ml IV Total 1563.33 ml 963.333 ml # Voids 2 2 Microbiology Date/Time Source Procedure Growth Status 11/03/18 17:45 Blood Blood Culture - Preliminary NO GROWTH AFTER 24 HOURS Resulted 11/03/18 17:30 Blood Blood Culture - Preliminary NO GROWTH AFTER 24 HOURS Resulted 11/04/18 21:00 Sputum Gram Stain - Final Resulted 11/04/18 21:00 Sputum Sputum Culture Pending Resulted 11/03/18 17:49 Nasal Nares Influenza Types A,B Antigen (ARLINE) - Final Complete Laboratory Tests 11/05/18 04:00: White Blood Count 7.3#, Red Blood Count 2.96L, Hemoglobin 9.0L, Hematocrit 27.7L , Mean Corpuscular Volume 93, Mean Corpuscular Hemoglobin 30.3, Mean Corpuscular Hemoglobin Concent 32.4, Red Cell Distribution Width 13.8, Platelet Count 101L, Mean Platelet Volume 7.2, Neutrophils (%) (Auto) 72.7, Lymphocytes ( %) (Auto) 18.3L, Monocytes (%) (Auto) 7.9, Eosinophils (%) (Auto) 0.8, Basophils (%) (Auto) 0.3, Sodium Level 139, Potassium Level 4.3, Chloride Level 107, Carbon Dioxide Level 22, Anion Gap 10, Blood Urea Nitrogen 26H, Creatinine 1.5H, Estimat Glomerular Filtration Rate , Glucose Level 166#H, Calcium Level 8.5, Magnesium Level 1.6L, Troponin I 0.342H Current Medications Medications (Trade) Dose Ordered Sig/Regi Route PRN Reason Start Time Stop Time Status Last Admin Dose Admin Acetaminophen (Tylenol) 650 mg Q4H PRN ORAL Mild Pain/Temp > 100.5 11/03/18 23:45 12/03/18 23:44 11/04/18 23:48 Al Hydroxide/Mg Hydroxide (Mylanta) 30 ml Q4HR PRN ORAL Abdominal cramps 11/03/18 23:45 12/03/18 23:44 Dextrose (Dextrose 50%) 25 ml Q30M PRN IV Hypoglycemia 11/04/18 13:15 12/04/18 13:14 Dextrose (Dextrose 50%) 50 ml Q30M PRN IV Hypoglycemia 11/04/18 13:15 12/04/18 13:14 Insulin Aspart (NovoLOG) BEFORE MEALS AND HS SUBQ 11/04/18 16:30 12/04/18 16:29 11/05/18 11:48 Levofloxacin (Levaquin) 250 mg DAILY ORAL 11/05/18 09:00 11/12/18 08:59 11/05/18 09:05 Magnesium Hydroxide (Mom) 30 ml DAILYPRN PRN ORAL Constipation 11/03/18 23:45 12/03/18 23:44 Metoprolol Tartrate (Lopressor) 25 mg Q12HR ORAL 11/04/18 09:00 12/04/18 08:59 11/05/18 09:05 Oseltamivir Phosphate (Tamiflu) 30 mg BID ORAL 11/04/18 18:00 11/08/18 18:01 11/05/18 09:05 Pantoprazole (Protonix) 40 mg DAILY ORAL 11/04/18 09:00 12/04/18 08:59 11/05/18 09:05 Sodium Chloride 1,000 ml @ 100 mls/hr Q10H IV 11/04/18 00:15 12/04/18 00:14 11/05/18 06:28 Vancomycin HCl (Vanco rx to dose) 1 ea DAILY MISC 11/04/18 09:00 11/11/18 08:59 Vancomycin HCl 500 mg/Dextrose 110 ml @ 110 mls/hr Q24H IVPB 11/05/18 03:00 11/10/18 02:59 11/05/18 02:11 Rony Severino MD Nov 05, 2018 15:55
[2018-11-05 16:00] VITALS: BP 143/72
--- NOTE | 2018-11-05 18:53 | NUR ---
NURSE NOTES: Patient's son (Jason Mina) is requesting for patient's home medications to be continued: Clonazepam 0.5mg PO PRN at bedtime for anxiety and Paxil 37.5mg PO once daily. Informed Dr. Ortiz and received orders. Orders carried out.
[2018-11-05] MEDS ORDERED: clonazePAM 0.5mg tab ORAL PRN (19:00)
--- NOTE | 2018-11-05 19:10 | NUR ---
NURSE NOTES: Received report from Rosa Chinchilla RN, pt. in bed awake, able to make needs known, cardiac monitoring on, no signs or symptoms of acute cardiac or respiratory distress noted, bed in lowest position and call light within easy reach, pt. appears to be sating well on room air at 94% - no respiratory distress noted, bed alarm on, side rails up x's3, safety brakes, bed engaged, bed alarm on, pt. is clean and dry, comfort measures provided, LFA 20G running NS +20meq KCL at 100cc/hr- IV intact and patent, safety measures continued, will continue with plan of care.
--- NOTE | 2018-11-05 19:28 | NUR ---
HAND-OFF: Report given to KEVIN Hayward.
--- NOTE | 2018-11-05 19:35 | NUR ---
NURSE NOTES: pharmacist called regarding Paxil CR not available - if we can ask patient if they have medication at home- will f/u and ask family member.
--- NOTE | 2018-11-05 19:42 | NUR ---
NURSE NOTES: Spoke to patients family member next of kin Ronda Leopoldo if pt. has Paxil CR at home they can bring as pharmacy does not carry that medication in [facility]- per Ronda - she will have daughter bring medication tomorrow as she is sick- notified pharmacist that family will bring medication tomorrow.
[2018-11-05 20:00] VITALS: BP 150/89
--- NOTE | 2018-11-05 20:19 | General Progress Note ---
Assessment/Plan Problem List: (1) Influenza A ICD Codes: J10.1 - Influenza due to other identified influenza virus with other respiratory manifestations SNOMED: 869424371 (2) Myelodysplasia (myelodysplastic syndrome) ICD Codes: D46.9 - Myelodysplastic syndrome, unspecified SNOMED: 265391444 (3) Atrial fibrillation ICD Codes: I48.91 - Unspecified atrial fibrillation SNOMED: 27475491 (4) CHF (congestive heart failure) ICD Codes: I50.9 - Heart failure, unspecified SNOMED: 35747385 (5) CAD (coronary artery disease) ICD Codes: I25.10 - Atherosclerotic heart disease of [place] coronary artery without angina pectoris SNOMED: 16133816 (6) Pneumonia ICD Codes: J18.9 - Pneumonia, unspecified organism SNOMED: 955310133 (7) Sepsis ICD Codes: A41.9 - Sepsis, unspecified organism SNOMED: 61788010 Status: stable, progressing Assessment/Plan tamiflu for influenza iv abx resp rx monitor cxr follow up cultures monitor trop dvt/stress ulcer prophylaxis Subjective Date patient seen: Nov 04, 2018 Time patient seen: 07:30 ROS Limited/Unobtainable: No Constitutional: Reports: fever, malaise, weakness HEENT: Reports: no symptoms Cardiovascular: Reports: no symptoms Respiratory: Reports: cough, shortness of breath Gastrointestinal/Abdominal: Reports: no symptoms Genitourinary: Reports: no symptoms Neurologic/Psychiatric: Reports: no symptoms Endocrine: Reports: no symptoms Hematologic/Lymphatic: Reports: no symptoms Allergies: Coded Allergies: No Known Allergies (Unverified , 11/03/18) All Systems: reviewed and negative except above Subjective c/o cough and congestion. no fever or chills. no cp. Objective Last 24 Hour Vital Signs Date Time Temp Pulse Resp B/P (MAP) Pulse Ox O2 Delivery O2 Flow Rate FiO2 11/05/18 16:00 Room Air 11/05/18 16:00 97.9 76 21 143/72 (95) 96 11/05/18 16:00 75 11/05/18 12:00 97.9 58 21 142/67 (92) 93 11/05/18 12:00 Room Air 11/05/18 11:35 61 11/05/18 09:05 66 122/77 11/05/18 08:00 97.9 66 20 122/77 (92) 95 11/05/18 08:00 Room Air 11/05/18 07:32 72 11/05/18 04:00 98.0 67 20 152/66 (94) 94 11/05/18 04:00 67 11/05/18 00:18 98.7 11/05/18 00:00 79 11/05/18 00:00 98.7 74 20 140/69 (92) 94 11/04/18 20:25 79 114/52 Intake and Output 11/04/18 11/05/18 19:00 07:00 Intake Total 1903.33 ml 1203.333 ml Balance 1903.33 ml 1203.333 ml Intake Oral 340 ml 240 ml IV Total 1563.33 ml 963.333 ml # Voids 2 2 Laboratory Tests 11/05/18 04:00: White Blood Count 7.3#, Red Blood Count 2.96L, Hemoglobin 9.0L, Hematocrit 27.7L , Mean Corpuscular Volume 93, Mean Corpuscular Hemoglobin 30.3, Mean Corpuscular Hemoglobin Concent 32.4, Red Cell Distribution Width 13.8, Platelet Count 101L, Mean Platelet Volume 7.2, Neutrophils (%) (Auto) 72.7, Lymphocytes ( %) (Auto) 18.3L, Monocytes (%) (Auto) 7.9, Eosinophils (%) (Auto) 0.8, Basophils (%) (Auto) 0.3, Sodium Level 139, Potassium Level 4.3, Chloride Level 107, Carbon Dioxide Level 22, Anion Gap 10, Blood Urea Nitrogen 26H, Creatinine 1.5H, Estimat Glomerular Filtration Rate , Glucose Level 166#H, Calcium Level 8.5, Magnesium Level 1.6L, Troponin I 0.342H 11/05/18 16:30: Troponin I 0.208H Height (Feet): 5 Height (Inches): 8.00 Weight (Pounds): 160 General Appearance: WD/WN, alert Neck: supple Cardiovascular: regular rhythm Respiratory/Chest: rhonchi - bilaterally Abdomen: normal bowel sounds, non tender, soft, no organomegaly Edema: no edema noted Arm (L), no edema noted Arm (R), no edema noted Leg (L), no edema noted Leg (R), no edema noted Pedal (L), no edema noted Pedal (R), no edema noted Generalized Neurologic: coat checker II-XII grossly normal, no motor/sensory deficits, alert, oriented x 3, responsive Russell Spears MD Nov 05, 2018 20:19
--- NOTE | 2018-11-05 21:00 | NUR ---
HAND-OFF: Report given to Leo BROWN, pt[facility] transferred [facility], pt. remains stable and no signs of distress noted.
--- NOTE | 2018-11-05 21:20 | NUR ---
NURSE NOTES: Received patient from KEVIN Hayward from [facility] via hospital bed. Patient resting in bed with no signs of acute distress. Patient denies any pain or discomfort. Respiration even and non labored. No SOB. Vitals stable. Bed in lowest position. Call light within reach. Will continue plan of care.
[2018-11-05] MEDS ORDERED: Albuterol/Ipratropium 3ml neb HHN PRN (22:30)
[2018-11-05] MEDS ORDERED: Milk of Magnesia 30ml Ud ORAL PRN (23:45)
[2018-11-06] VITALS (7 sets, daily range): BP systolic 139–182; BP diastolic 54–95
[2018-11-06] MEDS: NS w/KCl 20mEq 1000ml 1,000 ML IV SCH ×2 (01:20→10:34)
[2018-11-06] MEDS ORDERED: Vancomycin 500 MG in D5W 110 ML IVPB SCH ×2 (03:00→15:00)
--- NOTE | 2018-11-06 03:45 | Progress Note ---
DATE: 11/05/2018 CARDIOLOGY PROGRESS NOTE SUBJECTIVE: The patient remains with cough and congestion. He is afebrile. Monitored rhythm, atrial fibrillation. OBJECTIVE: VITAL SIGNS: Blood pressure 143/72, pulse 76, and respirations 21. LUNGS: Coarse breath sounds. Rhonchi. Rhinorrhea. HEART: Irregularly irregular rhythm. No new murmur. ABDOMEN: Soft. EXTREMITIES: Trace edema. LABORATORY DATA: White count 7.3 and hemoglobin 9. Troponin down to 0.208. IMPRESSION: 1. Acute myocardial infarction. 2. Influenza, sepsis, and pneumonia. 3. Paroxysmal atrial fibrillation with rate control. 4. Myelodysplastic syndrome. 5. Chronic diastolic congestive heart failure. PLAN: 1. Tamiflu. 2. Respiratory hygiene. 3. child monitor. 4. Replace electrolytes and magnesium as needed. 5. Continue beta-samuel. 6. No anti-platelet or anticoagulant therapy due to bleeding risks. Rony Butler M.D. DR: ROSARIO JOB#: [id number] CC:
[2018-11-06] MEDS: NovoLOG Insulin Flexpen SUBQ SCH ×4 (06:26→21:47)
--- NOTE | 2018-11-06 07:35 | NUR ---
HAND-OFF: Report given to KEVIN Staley.
--- NOTE | 2018-11-06 07:37 | General Progress Note ---
Assessment/Plan Problem List: (1) Influenza A ICD Codes: J10.1 - Influenza due to other identified influenza virus with other respiratory manifestations SNOMED: 722513667 (2) Myelodysplasia (myelodysplastic syndrome) ICD Codes: D46.9 - Myelodysplastic syndrome, unspecified SNOMED: 608901836 (3) Atrial fibrillation ICD Codes: I48.91 - Unspecified atrial fibrillation SNOMED: 94395843 (4) CHF (congestive heart failure) ICD Codes: I50.9 - Heart failure, unspecified SNOMED: 99015889 (5) CAD (coronary artery disease) ICD Codes: I25.10 - Atherosclerotic heart disease of [place] coronary artery without angina pectoris SNOMED: 75100649 (6) Pneumonia ICD Codes: J18.9 - Pneumonia, unspecified organism SNOMED: 968670082 (7) Sepsis ICD Codes: A41.9 - Sepsis, unspecified organism SNOMED: 53857623 Status: stable, progressing Assessment/Plan tamiflu for influenza iv abx resp rx monitor cxr follow up cultures monitor trop no antiplt rx due to MDS dvt/stress ulcer prophylaxis dc per pulm Subjective ROS Limited/Unobtainable: No Constitutional: Reports: malaise, weakness HEENT: Reports: no symptoms Cardiovascular: Reports: no symptoms Respiratory: Reports: cough Gastrointestinal/Abdominal: Reports: no symptoms Genitourinary: Reports: no symptoms Neurologic/Psychiatric: Reports: no symptoms Endocrine: Reports: no symptoms Hematologic/Lymphatic: Reports: anemia Allergies: Coded Allergies: No Known Allergies (Unverified , 11/03/18) All Systems: reviewed and negative except above Subjective decreased congestion and cough. no sob. on room air. in isolation for flu. cards noted Objective Last 24 Hour Vital Signs Date Time Temp Pulse Resp B/P (MAP) Pulse Ox O2 Delivery O2 Flow Rate FiO2 11/06/18 04:00 99.2 69 17 165/73 (103) 93 11/06/18 04:00 66 11/06/18 00:00 67 11/06/18 00:00 99.3 67 18 171/68 (102) 94 11/05/18 21:00 Room Air 11/05/18 20:30 73 150/89 11/05/18 20:00 98.0 73 20 150/89 (109) 94 11/05/18 20:00 76 11/05/18 16:00 Room Air 11/05/18 16:00 97.9 76 21 143/72 (95) 96 11/05/18 16:00 75 11/05/18 12:00 97.9 58 21 142/67 (92) 93 11/05/18 12:00 Room Air 11/05/18 11:35 61 11/05/18 09:05 66 122/77 11/05/18 08:00 97.9 66 20 122/77 (92) 95 11/05/18 08:00 Room Air Intake and Output 11/05/18 11/06/18 18:59 06:59 Intake Total 1616.666 ml 950.66 ml Balance 1616.666 ml 950.66 ml Intake Oral 300 ml 360 ml IV Total 1316.666 ml 590.66 ml # Voids 2 2 # Bowel Movements 2 Laboratory Tests 11/05/18 16:30: Troponin I 0.208H 11/06/18 02:00: Vancomycin Level Trough 3.1L Height (Feet): 5 Height (Inches): 8.00 Weight (Pounds): 160 General Appearance: WD/WN, alert Neck: supple Cardiovascular: normal rate Respiratory/Chest: chest wall non-tender, lungs clear, normal breath sounds Abdomen: normal bowel sounds, non tender, soft, no organomegaly Edema: no edema noted Arm (L), no edema noted Arm (R), no edema noted Leg (L), no edema noted Leg (R), no edema noted Pedal (L), no edema noted Pedal (R), no edema noted Generalized Neurologic: order tracer II-XII grossly normal, alert, oriented x 3 Russell Spears MD Nov 06, 2018 07:37
--- NOTE | 2018-11-06 07:45 | NUR ---
NURSE NOTES: Received patient from KEVIN Bailey. Patient resting in bed with no signs of acute distress. Respiration even and non labored. No SOB. Bed in lowest position. Call light within reach. Left wrist 22g and left forearm 22g asymptomatic and intact SL. On droplet precaution because of positive influenza strain. Will continue plan of care. Addendum: 11/06/18 at 0749 by Luís Reynolds RN In addition, patient is afib.
[2018-11-06] MEDS ORDERED: PARoxetine 20mg tab ORAL SCH (09:00)
[2018-11-06] MEDS: Metoprolol 25mg tab ORAL SCH ×2 (10:39→21:47)
--- NOTE | 2018-11-06 11:51 | Pulmonology Progress Note ---
Assessment/Plan Assessment/Plan IMPRESSION: CHF, atrial fibrillation, leukocytosis, possible pneumonia, positive influenza, thrombocytopenia, hypomagnesemia, mild protein-calorie malnutrition, probable chronic renal failure. PLAN care noted iv antibiotics--->po respiratory care dc isolation check urine culture check cxr oxygen to dc monitor as is ID evaluation noted hope to dc in am impression, plan, and exam edited and reviewed in detail care discussed with RN Subjective Allergies: Coded Allergies: No Known Allergies (Unverified , 11/03/18) Subjective care noted and reviewed cards noted upset regarding care last night spoke to daughter in detail Objective Last 24 Hour Vital Signs Date Time Temp Pulse Resp B/P (MAP) Pulse Ox O2 Delivery O2 Flow Rate FiO2 11/06/18 10:39 75 182/95 11/06/18 08:10 67 18 Room Air 21 11/06/18 04:00 99.2 69 17 165/73 (103) 93 11/06/18 04:00 66 11/06/18 00:00 67 11/06/18 00:00 99.3 67 18 171/68 (102) 94 11/05/18 21:00 Room Air 11/05/18 20:30 73 150/89 11/05/18 20:00 98.0 73 20 150/89 (109) 94 11/05/18 20:00 76 11/05/18 16:00 Room Air 11/05/18 16:00 97.9 76 21 143/72 (95) 96 11/05/18 16:00 75 11/05/18 12:00 97.9 58 21 142/67 (92) 93 11/05/18 12:00 Room Air Intake and Output 11/05/18 11/06/18 18:59 06:59 Intake Total 1616.666 ml 950.66 ml Balance 1616.666 ml 950.66 ml Intake Oral 300 ml 360 ml IV Total 1316.666 ml 590.66 ml # Voids 2 2 # Bowel Movements 2 Objective PHYSICAL EXAMINATION: GENERAL: WDWN male NAD HEENT: Negative. Oropharynx not injected. NECK: Supple. LUNGS: Moderate breath sounds. clearer at both bases. CARDIAC: Normal S1, S2. Soft systolic murmur. Regular rate and rhythm. ABDOMEN: Soft and nontender. EXTREMITIES: No cyanosis or clubbing. There is mild edema. NEUROLOGIC: Grossly nonfocal. Microbiology Date/Time Source Procedure Growth Status 11/03/18 17:45 Blood Blood Culture - Preliminary NO GROWTH AFTER 48 HOURS Resulted 11/03/18 17:30 Blood Blood Culture - Preliminary NO GROWTH AFTER 48 HOURS Resulted 11/04/18 21:00 Sputum Gram Stain - Final Resulted 11/04/18 21:00 Sputum Sputum Culture - Preliminary NORMAL UPPER RESPIRATORY FREDERICK AT 24 ... Resulted 11/03/18 17:49 Nasal Nares Influenza Types A,B Antigen (ARLINE) - Final Complete Laboratory Tests 11/05/18 16:30: Troponin I 0.208H 11/06/18 02:00: Vancomycin Level Trough 3.1L Current Medications Medications (Trade) Dose Ordered Sig/Regi Route PRN Reason Start Time Stop Time Status Last Admin Dose Admin Acetaminophen (Tylenol) 650 mg Q4H PRN ORAL Mild Pain/Temp > 100.5 11/05/18 23:45 12/03/18 23:44 Al Hydroxide/Mg Hydroxide (Mylanta) 30 ml Q4HR PRN ORAL Abdominal cramps 11/06/18 01:00 12/03/18 23:44 Albuterol/ Ipratropium (Albuterol/ Ipratropium) 3 ml Q6HRT HHN 11/06/18 13:00 11/11/18 12:59 Clonazepam (KlonoPIN) 0.5 mg BEDTIME PRN ORAL For Anxiety 11/06/18 21:00 11/12/18 18:59 Dextrose (Dextrose 50%) 25 ml Q30M PRN IV Hypoglycemia 11/05/18 21:45 12/04/18 13:14 Dextrose (Dextrose 50%) 50 ml Q30M PRN IV Hypoglycemia 11/05/18 21:45 12/04/18 13:14 Insulin Aspart (NovoLOG) BEFORE MEALS AND HS SUBQ 11/06/18 06:30 12/04/18 16:29 11/06/18 06:26 Levofloxacin (Levaquin) 250 mg DAILY ORAL 11/06/18 09:00 11/12/18 08:59 11/06/18 10:38 Magnesium Hydroxide (Mom) 30 ml DAILYPRN PRN ORAL Constipation 11/05/18 23:45 12/03/18 23:44 Metoprolol Tartrate (Lopressor) 25 mg Q12HR ORAL 11/06/18 09:00 12/04/18 08:59 11/06/18 10:39 Oseltamivir Phosphate (Tamiflu) 30 mg BID ORAL 11/06/18 09:00 11/08/18 18:01 11/06/18 10:58 Pantoprazole (Protonix) 40 mg DAILY ORAL 11/06/18 09:00 12/04/18 08:59 11/06/18 10:38 Paroxetine HCl (Paxil CR) 37.5 mg DAILY ORAL 11/06/18 09:00 12/06/18 08:59 Sodium Chloride 1,000 ml @ 100 mls/hr Q10H IV 11/05/18 21:30 12/04/18 00:14 11/06/18 10:34 Vancomycin HCl (Vanco rx to dose) 1 ea DAILY MISC 11/06/18 09:00 11/13/18 08:59 Vancomycin HCl 500 mg/Dextrose 110 ml @ 110 mls/hr Q12H IVPB 11/06/18 15:00 11/11/18 14:59 Leonard Ortiz MD Nov 06, 2018 11:51
[2018-11-06] MEDS: PAROXETINE 12.5 MG ORAL SCH (12:11)
--- NOTE | 2018-11-06 12:26 | Infectious Diseases Prog Note ---
Assessment/Plan Assessment/Plan A 1. influenza A URI 2. pneumonia 3. leucocytosis resolved 4. MDS 4. diabetes mellitus P 1. Discontinue vancomycin iv, Continue Levaquin 2. continue Tamiflu 1 more day Subjective ROS Limited/Unobtainable: No Constitutional: Reports: no symptoms Respiratory: Reports: dry cough Gastrointestinal/Abdominal: Reports: no symptoms Genitourinary: Reports: no symptoms Allergies: Coded Allergies: No Known Allergies (Unverified , 11/03/18) Objective Vital Signs Last 24 Hour Vital Signs Date Time Temp Pulse Resp B/P (MAP) Pulse Ox O2 Delivery O2 Flow Rate FiO2 11/06/18 10:39 75 182/95 11/06/18 10:30 146/88 (107) 11/06/18 08:10 67 18 Room Air 21 11/06/18 08:00 98.1 75 21 182/95 (124) 93 11/06/18 04:00 99.2 69 17 165/73 (103) 93 11/06/18 04:00 66 11/06/18 00:00 67 11/06/18 00:00 99.3 67 18 171/68 (102) 94 11/05/18 21:00 Room Air 11/05/18 20:30 73 150/89 11/05/18 20:00 98.0 73 20 150/89 (109) 94 11/05/18 20:00 76 11/05/18 16:00 Room Air 11/05/18 16:00 97.9 76 21 143/72 (95) 96 11/05/18 16:00 75 Height (Feet): 5 Height (Inches): 8.00 Weight (Pounds): 160 General Appearance: no acute distress HEENT: mucous membranes moist Respiratory/Chest: lungs clear Cardiovascular: normal rate Abdomen: soft, non tender Extremities: no edema Neurologic/Psychiatric: alert, oriented x 3, responsive Microbiology Date/Time Source Procedure Growth Status 11/03/18 17:45 Blood Blood Culture - Preliminary NO GROWTH AFTER 48 HOURS Resulted 11/03/18 17:30 Blood Blood Culture - Preliminary NO GROWTH AFTER 48 HOURS Resulted 11/04/18 21:00 Sputum Gram Stain - Final Resulted 11/04/18 21:00 Sputum Sputum Culture - Preliminary NORMAL UPPER RESPIRATORY [place] AT 24 ... Resulted 11/03/18 17:49 Nasal Nares Influenza Types A,B Antigen (ARLINE) - Final Complete Laboratory Tests Test 11/05/18 16:30 11/06/18 02:00 Troponin I 0.208 ng/mL (0.000-0.056) Vancomycin Level Trough 3.1 ug/mL (5.0-12.0) L Current Medications Medications (Trade) Dose Ordered Sig/Regi Route PRN Reason Start Time Stop Time Status Last Admin Dose Admin Acetaminophen (Tylenol) 650 mg Q4H PRN ORAL Mild Pain/Temp > 100.5 11/05/18 23:45 12/03/18 23:44 Al Hydroxide/Mg Hydroxide (Mylanta) 30 ml Q4HR PRN ORAL Abdominal cramps 11/06/18 01:00 12/03/18 23:44 Albuterol/ Ipratropium (Albuterol/ Ipratropium) 3 ml Q6HRT HHN 11/06/18 13:00 11/11/18 12:59 Clonazepam (KlonoPIN) 0.5 mg BEDTIME PRN ORAL For Anxiety 11/06/18 21:00 11/12/18 18:59 Dextrose (Dextrose 50%) 25 ml Q30M PRN IV Hypoglycemia 11/05/18 21:45 12/04/18 13:14 Dextrose (Dextrose 50%) 50 ml Q30M PRN IV Hypoglycemia 11/05/18 21:45 12/04/18 13:14 Insulin Aspart (NovoLOG) BEFORE MEALS AND HS SUBQ 11/06/18 06:30 12/04/18 16:29 11/06/18 06:26 Levofloxacin (Levaquin) 250 mg DAILY ORAL 11/06/18 09:00 11/12/18 08:59 11/06/18 10:38 Magnesium Hydroxide (Mom) 30 ml DAILYPRN PRN ORAL Constipation 11/05/18 23:45 12/03/18 23:44 Metoprolol Tartrate (Lopressor) 25 mg Q12HR ORAL 11/06/18 09:00 12/04/18 08:59 11/06/18 10:39 Oseltamivir Phosphate (Tamiflu) 30 mg BID ORAL 11/06/18 09:00 11/08/18 18:01 11/06/18 10:58 Pantoprazole (Protonix) 40 mg DAILY ORAL 11/06/18 09:00 12/04/18 08:59 11/06/18 10:38 Paroxetine HCl (Paxil CR) 37.5 mg DAILY ORAL 11/06/18 09:00 12/06/18 08:59 11/06/18 12:11 Vancomycin HCl (Vanco rx to dose) 1 ea DAILY MISC 11/06/18 09:00 11/13/18 08:59 Vancomycin HCl 500 mg/Dextrose 110 ml @ 110 mls/hr Q12H IVPB 11/06/18 15:00 11/11/18 14:59 Caleb Barboza MD Nov 06, 2018 12:26
--- NOTE | 2018-11-06 13:10 | NUR ---
[facility] PT NOTE CONSULT RECEIVED, ADILENE CMPLTED, PATIENT AT BASELINE LEVEL OF FUNCTION. NO SKILLED NEEDS. RECOMMEND NURSING STAFF TO AMBULATE PATIENT IN [place] AND CONTINUE WITH COMFORT AND CARE OF PATIENT. YOLI PT. ELKE ODELL PT DPT Addendum: 11/06/18 at 1310 by ELKE ODELL PT Amended: Links added.
[2018-11-06] MEDS: Albuterol/Ipratropium 3ml neb HHN SCH ×2 (13:37→20:16)
--- NOTE | 2018-11-06 14:18 | Diagnostic Imaging Report ---
Indication: Dyspnea Comparison: 11/04/2018 2 views of the chest obtained. Findings: No significant change is appreciated accounting for technical differences which are considerable. There is suggestion of scarring or atelectasis involving the medial aspects of both lung bases unchanged. Heart size remains normal. Sternotomy again noted. IMPRESSION: No acute disease. No change
--- NOTE | 2018-11-06 14:33 | NUR ---
RADIOLOGY DEPT CHEST X-RAY DONE.-P.DYE
[2018-11-06] MEDS ORDERED: BYSTOLIC5 MG ORAL (16:08)
[2018-11-06] MEDS ORDERED: GLIMEPIRIDE2 MG ORAL (16:08)
[2018-11-06] MEDS ORDERED: UROXATRAL10 MG ORAL (16:08)
[2018-11-06] MEDS ORDERED: FLOMAX0.4 MG ORAL (16:08)
[2018-11-06] MEDS ORDERED: JANUMET XR 50-1 EAC1 ORAL (16:08)
[2018-11-06] MEDS ORDERED: ASPIR 8181 MG ORAL (16:08)
[2018-11-06] MEDS ORDERED: DIGOXIN125 MCG ORAL (16:08)
[2018-11-06] MEDS ORDERED: PAROXETINE HC37.5 MG PO (16:08)
[2018-11-06] MEDS ORDERED: PLAVIX75 MG ORAL (16:08)
--- NOTE | 2018-11-06 16:35 | Nephrology Progress Note ---
Assessment/Plan Plan CKD III stable. Renal US noted. Subjective Subjective No new c/o Objective Objective Last 24 Hour Vital Signs Date Time Temp Pulse Resp B/P (MAP) Pulse Ox O2 Delivery O2 Flow Rate FiO2 11/06/18 13:43 64 18 98 Room Air 21 11/06/18 13:39 62 18 94 Room Air 21 11/06/18 12:00 98.1 65 21 140/76 (97) 98 11/06/18 11:50 65 11/06/18 10:39 75 182/95 11/06/18 10:30 146/88 (107) 11/06/18 09:00 Room Air 11/06/18 08:10 67 18 Room Air 21 11/06/18 08:00 98.1 75 21 182/95 (124) 93 11/06/18 07:59 71 11/06/18 04:00 99.2 69 17 165/73 (103) 93 11/06/18 04:00 66 11/06/18 00:00 67 11/06/18 00:00 99.3 67 18 171/68 (102) 94 11/05/18 21:00 Room Air 11/05/18 20:30 73 150/89 11/05/18 20:00 98.0 73 20 150/89 (109) 94 11/05/18 20:00 76 Intake and Output 11/05/18 11/06/18 19:00 07:00 Intake Total 1663.333 ml 850.66 ml Balance 1663.333 ml 850.66 ml Intake Oral 300 ml 360 ml IV Total 1363.333 ml 490.66 ml # Voids 2 2 # Bowel Movements 2 Laboratory Tests 11/06/18 02:00: Vancomycin Level Trough 3.1L Height (Feet): 5 Height (Inches): 8.00 Weight (Pounds): 160 Objective CV RR Lungs CTA Abd SNT. BS + E No CCE Axel Meyers MD Nov 06, 2018 16:35
--- NOTE | 2018-11-06 19:28 | NUR ---
HAND-OFF: Report given to KEVIN Smith. Endorsed plan of care.
--- NOTE | 2018-11-06 19:30 | NUR ---
NURSE NOTES: Report received from Luís BROWN. Pt is resting in bed in stable condition. Pt is awake, alert, and oriented x4. Pt is on room air and breathing is even and unlabored. No acute distress noted. IV site is asymptomatic, patent, and intact. Bed is in lowest position with brake engaged and side rails up x2. Call light and side table are within reach. Will continue to monitor.
[2018-11-06] MEDS: clonazePAM 0.5mg tab ORAL PRN (22:21)
[2018-11-07] VITALS: BP 138/73
--- NOTE | 2018-11-07 00:26 | NUR ---
HAND-OFF: Report given to Halle Mares RN. Pt is resting in bed in stable condition. No acute distress noted. Endorsed plan of care.
--- NOTE | 2018-11-07 00:59 | NUR ---
NURSE NOTES: patient received. patient in no acute distress at this time. patient complains of no pain at this time. patient resting at this time. patient A&Ox4. IV intact and asymptomatic. bed in lowest position and locked. will continue to monitor.
[2018-11-07] MEDS: Albuterol/Ipratropium 3ml neb HHN SCH ×4 (01:00→19:03)
--- NOTE | 2018-11-07 03:15 | Progress Note ---
DATE: 11/06/2018 CARDIOLOGY PROGRESS NOTE SUBJECTIVE: The patient has less cough, congestion, and shortness of breath. He is saturating adequately on room air. OBJECTIVE: VITAL SIGNS: Blood pressure 165/73, pulse 69, and respirations 17. LUNGS: Few rhonchi. HEART: Irregularly irregular rhythm. Normal S1, S2. ABDOMEN: Soft. EXTREMITIES: No edema. IMPRESSION: 1. Influenza pneumonia. 2. Acute on chronic renal failure. 3. Hypomagnesemia. 4. Acute myocardial ischemia. 5. Chronic atrial fibrillation, rate controlled. PLAN: 1. Antiviral therapy. 2. Respiratory hygiene. 3. Bronchodilators. 4. Continue anti-platelet therapy. 5. No plan for anticoagulation due to inherent bleeding risk in the setting of myelodysplastic syndrome. Rony Butler M.D. DR: MANJEET JOB#: [id number] CC:
[2018-11-07 04:00] VITALS: BP 131/65
[2018-11-07] MEDS: NovoLOG Insulin Flexpen SUBQ SCH ×4 (05:33→21:00)
--- NOTE | 2018-11-07 07:00 | NUR ---
NURSE NOTES: received patient report from [place]. patient is on bed asleep. no acute distress noted. bed is low and locked. will continue to monitor.
--- NOTE | 2018-11-07 07:07 | NUR ---
HAND-OFF: Report given to ma. BROWN.
[2018-11-07 08:00] VITALS: BP 159/75
[2018-11-07] MEDS: Aspirin Baby 81mg ORAL SCH (08:56)
[2018-11-07] MEDS: PAROXETINE 12.5 MG ORAL SCH (08:56)
[2018-11-07] MEDS: Digoxin 0.125mg tab ORAL SCH (08:56)
[2018-11-07] MEDS: Metoprolol 25mg tab ORAL SCH ×2 (08:56→21:22)
[2018-11-07] MEDS ORDERED: Levofloxacin 500mg tab ORAL SCH (09:00)
--- NOTE | 2018-11-07 10:44 | General Progress Note ---
Assessment/Plan Problem List: (1) Influenza A ICD Codes: J10.1 - Influenza due to other identified influenza virus with other respiratory manifestations SNOMED: 276619016 (2) Myelodysplasia (myelodysplastic syndrome) ICD Codes: D46.9 - Myelodysplastic syndrome, unspecified SNOMED: 163795358 (3) Atrial fibrillation ICD Codes: I48.91 - Unspecified atrial fibrillation SNOMED: 93336083 (4) CHF (congestive heart failure) ICD Codes: I50.9 - Heart failure, unspecified SNOMED: 12540310 (5) CAD (coronary artery disease) ICD Codes: I25.10 - Atherosclerotic heart disease of [place] coronary artery without angina pectoris SNOMED: 58851187 (6) Pneumonia ICD Codes: J18.9 - Pneumonia, unspecified organism SNOMED: 706628932 (7) Sepsis ICD Codes: A41.9 - Sepsis, unspecified organism SNOMED: 82718570 Status: stable Assessment/Plan tamiflu for influenza iv abx resp rx monitor cxr follow up cultures monitor trop no antiplt rx due to MDS dvt/stress ulcer prophylaxis dc per pulm Subjective ROS Limited/Unobtainable: No Constitutional: Reports: malaise, weakness HEENT: Reports: no symptoms Cardiovascular: Reports: no symptoms Respiratory: Reports: cough Gastrointestinal/Abdominal: Reports: no symptoms Genitourinary: Reports: no symptoms Neurologic/Psychiatric: Reports: no symptoms Endocrine: Reports: no symptoms Hematologic/Lymphatic: Reports: no symptoms Allergies: Coded Allergies: No Known Allergies (Unverified , 11/03/18) All Systems: reviewed and negative except above Subjective decreased congestion and cough. no sob. on room air. in isolation for flu. cards noted ID noted. on tamiflu Objective Last 24 Hour Vital Signs Date Time Temp Pulse Resp B/P (MAP) Pulse Ox O2 Delivery O2 Flow Rate FiO2 11/07/18 09:00 Nasal Cannula 2.0 11/07/18 08:56 75 11/07/18 08:56 75 159/75 11/07/18 08:00 99.3 75 21 159/75 (103) 95 11/07/18 08:00 71 11/07/18 07:00 Room Air 11/07/18 07:00 62 20 Room Air 21 11/07/18 07:00 Room Air 1/18/19 04:00 98.2 64 17 131/65 (87) 94 11/07/18 04:00 54 11/07/18 01:51 Room Air 21 11/07/18 01:51 Room Air 21 11/07/18 00:00 57 11/07/18 00:00 97.5 57 19 138/73 (94) 95 11/06/18 21:47 65 139/54 11/06/18 21:00 Room Air 11/06/18 20:19 56 20 99 Room Air 21 11/06/18 20:08 54 20 93 Room Air 21 11/06/18 20:06 54 20 Room Air 21 11/06/18 20:00 99.0 60 16 139/54 (82) 94 11/06/18 20:00 60 11/06/18 16:00 98.2 57 23 152/66 (94) 96 11/06/18 15:36 60 11/06/18 13:43 64 18 98 Room Air 21 11/06/18 13:39 62 18 94 Room Air 21 11/06/18 12:00 98.1 65 21 140/76 (97) 98 11/06/18 11:50 65 Intake and Output 11/06/18 11/07/18 18:59 06:59 Intake Total 100 ml Balance 100 ml Intake Oral 100 ml # Voids 3 1 Height (Feet): 5 Height (Inches): 8.00 Weight (Pounds): 160 General Appearance: WD/WN, alert Neck: supple Cardiovascular: normal rate Respiratory/Chest: normal breath sounds Abdomen: normal bowel sounds, non tender, soft Edema: no edema noted Arm (L), no edema noted Arm (R), no edema noted Leg (L), no edema noted Leg (R), no edema noted Pedal (L), no edema noted Pedal (R), no edema noted 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
--- NOTE | 2018-11-07 10:54 | Infectious Diseases Prog Note ---
Assessment/Plan Assessment/Plan antibiotics : 1.15.19 levoquin - 1.14.19 tamiflu - A 1. influenza A URI s/p rx 2. pneumonia unlikely 3. leucocytosis resolved 4. MDS 4. diabetes mellitus P 1. d/c levoquin, tamiflu 2. observe off antibiotics Subjective Constitutional: Denies: fever, chills Respiratory: Reports: dry cough; Denies: shortness of breath Gastrointestinal/Abdominal: Denies: nausea, vomiting, diarrhea Musculoskeletal: Denies: pain Allergies: Coded Allergies: No Known Allergies (Unverified , 11/03/18) Objective Vital Signs Last 24 Hour Vital Signs Date Time Temp Pulse Resp B/P (MAP) Pulse Ox O2 Delivery O2 Flow Rate FiO2 11/07/18 09:00 Nasal Cannula 2.0 11/07/18 08:56 75 11/07/18 08:56 75 159/75 11/07/18 08:00 99.3 75 21 159/75 (103) 95 11/07/18 08:00 71 11/07/18 07:00 Room Air 11/07/18 07:00 62 20 Room Air 21 11/07/18 07:00 Room Air 11/07/18 04:00 98.2 64 17 131/65 (87) 94 11/07/18 04:00 54 11/07/18 01:51 Room Air 21 11/07/18 01:51 Room Air 21 11/07/18 00:00 57 11/07/18 00:00 97.5 57 19 138/73 (94) 95 11/06/18 21:47 65 139/54 11/06/18 21:00 Room Air 11/06/18 20:19 56 20 99 Room Air 21 11/06/18 20:08 54 20 93 Room Air 21 11/06/18 20:06 54 20 Room Air 21 11/06/18 20:00 99.0 60 16 139/54 (82) 94 11/06/18 20:00 60 11/06/18 16:00 98.2 57 23 152/66 (94) 96 11/06/18 15:36 60 11/06/18 13:43 64 18 98 Room Air 21 11/06/18 13:39 62 18 94 Room Air 21 11/06/18 12:00 98.1 65 21 140/76 (97) 98 11/06/18 11:50 65 Height (Feet): 5 Height (Inches): 8.00 Weight (Pounds): 160 Respiratory/Chest: lungs clear Cardiovascular: normal rate, regular rhythm, no gallop/murmur Abdomen: soft, non tender Extremities: no edema Microbiology Date/Time Source Procedure Growth Status 11/04/18 21:00 Sputum Gram Stain - Final Complete 11/04/18 21:00 Sputum Culture - Final Jacey Albicans Usual Respiratory Eugenia Complete Current Medications Medications (Trade) Dose Ordered Sig/Regi Route PRN Reason Start Time Stop Time Status Last Admin Dose Admin Acetaminophen (Tylenol) 650 mg Q4H PRN ORAL Mild Pain/Temp > 100.5 11/05/18 23:45 12/03/18 23:44 Al Hydroxide/Mg Hydroxide (Mylanta) 30 ml Q4HR PRN ORAL Abdominal cramps 11/06/18 01:00 12/03/18 23:44 Albuterol/ Ipratropium (Albuterol/ Ipratropium) 3 ml Q6HRT HHN 11/06/18 13:00 11/11/18 12:59 11/06/18 20:16 Alfuzosin HCl (Uroxatrol) 10 mg DAILY ORAL 11/07/18 09:00 12/07/18 08:59 11/07/18 08:57 Aspirin (ASA) 81 mg DAILY ORAL 11/07/18 09:00 12/07/18 08:59 11/07/18 08:56 Clonazepam (KlonoPIN) 0.5 mg BEDTIME PRN ORAL For Anxiety 11/06/18 21:00 11/12/18 18:59 11/06/18 22:21 Clopidogrel Bisulfate (Plavix) 75 mg DAILY ORAL 11/07/18 09:00 12/07/18 08:59 11/07/18 08:57 Dextrose (Dextrose 50%) 25 ml Q30M PRN IV Hypoglycemia 11/05/18 21:45 12/04/18 13:14 Dextrose (Dextrose 50%) 50 ml Q30M PRN IV Hypoglycemia 11/05/18 21:45 12/04/18 13:14 Digoxin (Lanoxin) 0.125 mg DAILY ORAL 11/07/18 09:00 12/07/18 08:59 11/07/18 08:56 Insulin Aspart (NovoLOG) BEFORE MEALS AND HS SUBQ 11/06/18 06:30 12/04/18 16:29 11/07/18 05:33 Levofloxacin (Levaquin) 250 mg DAILY ORAL 11/06/18 09:00 11/12/18 08:59 11/07/18 08:57 Magnesium Hydroxide (Mom) 30 ml DAILYPRN PRN ORAL Constipation 11/05/18 23:45 12/03/18 23:44 Metoprolol Tartrate (Lopressor) 25 mg Q12HR ORAL 11/06/18 09:00 12/04/18 08:59 11/07/18 08:56 Oseltamivir Phosphate (Tamiflu) 30 mg BID ORAL 11/06/18 09:00 11/08/18 18:01 11/07/18 08:57 Pantoprazole (Protonix) 40 mg DAILY ORAL 11/06/18 09:00 12/04/18 08:59 11/07/18 08:56 Paroxetine HCl (Paxil CR) 37.5 mg DAILY ORAL 11/06/18 09:00 12/06/18 08:59 11/07/18 08:56 Alayna Wolfe MD Nov 07, 2018 10:54
--- NOTE | 2018-11-07 11:01 | NUR ---
NURSE NOTES: per dr wolff, dc droplet isolation.will take note and carry out.
[2018-11-07 12:00] VITALS: BP 137/72
--- NOTE | 2018-11-07 12:31 | Pulmonology Progress Note ---
Assessment/Plan Assessment/Plan Pulmonary Progress Note Assessment/Plan IMPRESSION: CHF, atrial fibrillation, leukocytosis, possible pneumonia, positive influenza, thrombocytopenia, hypomagnesemia, mild protein-calorie malnutrition, probable chronic renal failure. PLAN care noted iv antibiotics--->po respiratory care dc isolation check urine culture check cxr oxygen to dc monitor as is ID evaluation noted hope to dc in am impression, plan, and exam edited and reviewed in detail care discussed with RN Subjective Allergies: Coded Allergies: No Known Allergies (Unverified , 11/03/18) Subjective care noted and reviewed cards noted Objective Vital Signs Noted Objective PHYSICAL EXAMINATION: GENERAL: An ill-appearing male. HEENT: Negative. Oropharynx not injected. NECK: Supple. LUNGS: Moderate breath sounds. Crackles on both bases. CARDIAC: Normal S1, S2. Soft systolic murmur. Regular rate and rhythm. ABDOMEN: Soft and nontender. EXTREMITIES: No cyanosis or clubbing. There is mild edema. NEUROLOGIC: Grossly nonfocal. Microbiology Date/Time Source Procedure Growth Status 11/03/18 17:49 Nasal Nares Influenza Types A,B Antigen (ARLINE) - Final Complete Laboratory Tests 11/03/18 17:49: White Blood Count 20.4H, Red Blood Count 3.34L, Hemoglobin 10.3L, Hematocrit 30.9L, Mean Corpuscular Volume 92, Mean Corpuscular Hemoglobin 30.9, Mean Corpuscular Hemoglobin Concent 33.4, Red Cell Distribution Width 13.9, Platelet Count 126L, Mean Platelet Volume 7.2, Neutrophils (%) (Auto) , Lymphocytes (%) ( Auto) , Monocytes (%) (Auto) , Eosinophils (%) (Auto) , Basophils (%) (Auto) , Differential Total Cells Counted 100, Neutrophils % (Manual) 84H, Lymphocytes % (Manual) 5L, Monocytes % (Manual) 9, Eosinophils % (Manual) 0, Basophils % ( Manual) 0, Band Neutrophils 2, Platelet Estimate DecreasedL, Platelet Morphology Normal, Hypochromasia 1+, Anisocytosis 1+, Sodium Level 136, Potassium Level 3.5, Chloride Level 102, Carbon Dioxide Level 21, Anion Gap 13, Blood Urea Nitrogen 21H, Creatinine 1.7H, Estimat Glomerular Filtration Rate , Glucose Level 277H, Lactic Acid Level 3.70H, Calcium Level 8.5, Phosphorus Level 1.8L, Magnesium Level 0.9*L, Total Bilirubin 0.9, Aspartate Amino Transf ( AST/SGOT) 17, Alanine Aminotransferase (ALT/SGPT) 26, Alkaline Phosphatase 61, Total Creatine Kinase 31, Creatine Kinase MB < 0.5, Creatine Kinase MB Relative Index 1.6, Troponin I 0.014, Total Protein 7.0, Albumin 3.2L, Globulin 3.8, Albumin/Globulin Ratio 0.8L 11/03/18 21:40: Urine Color Pale yellow, Urine Appearance Clear, Urine pH 5, Urine Specific [place] 1.015, Urine Protein 2+H, Urine Glucose (UA) 4+H, Urine Ketones Negative , Urine Blood 1+H, Urine Nitrite Negative, Urine Bilirubin Negative, Urine Urobilinogen Normal, Urine Leukocyte Esterase Negative, Urine RBC 2-4H, Urine WBC 0-2, Urine Squamous Epithelial Cells None, Urine Bacteria Few 11/03/18 21:45: Lactic Acid Level 4.10H Current Medications Medications (Trade) Dose Ordered Sig/Regi Route PRN Reason Start Time Stop Time Status Last Admin Dose Admin Acetaminophen (Tylenol) 650 mg Q4H PRN ORAL Mild Pain/Temp > 100.5 11/03/18 23:45 12/03/18 23:44 11/04/18 00:35 Al Hydroxide/Mg Hydroxide (Mylanta) 30 ml Q4HR PRN ORAL Abdominal cramps 11/03/18 23:45 12/03/18 23:44 Heparin Sodium (Porcine) (Heparin 5000 units/ml) 5,000 units BID SUBQ 11/04/18 09:00 12/04/18 08:59 UNV Levofloxacin (Levaquin) 250 mg DAILY ORAL 11/05/18 09:00 11/12/18 08:59 Levofloxacin (Levaquin) 500 mg DAILY ORAL 11/04/18 09:00 11/04/18 09:01 Magnesium Hydroxide (Mom) 30 ml DAILYPRN PRN ORAL Constipation 11/03/18 23:45 12/03/18 23:44 Metoprolol Tartrate (Lopressor) 25 mg Q12HR ORAL 11/04/18 09:00 12/04/18 08:59 Oseltamivir Phosphate (Tamiflu) 75 mg BID ORAL 11/04/18 09:00 11/09/18 08:59 Pantoprazole (Protonix) 40 mg DAILY ORAL 11/04/18 09:00 12/04/18 08:59 Piperacillin Sod/ Tazobactam Sod 2.25 gm/Sodium Chloride 55 ml @ 110 mls/hr Q6H IV 11/04/18 00:10 11/11/18 00:09 11/04/18 05:55 Sodium Chloride 1,000 ml @ 100 mls/hr Q10H IV 11/04/18 00:15 12/04/18 00:14 11/04/18 01:30 Vancomycin HCl (Vanco rx to dose) 1 ea DAILY MISC 11/04/18 09:00 11/11/18 08:59 Vancomycin HCl/ Dextrose 250 ml @ 167 mls/hr Q24H IVPB 11/04/18 02:00 11/09/18 01:59 11/04/18 03:10 Subjective ROS Limited/Unobtainable: No Allergies: Coded Allergies: No Known Allergies (Unverified , 11/03/18) Objective Last 24 Hour Vital Signs Date Time Temp Pulse Resp B/P (MAP) Pulse Ox O2 Delivery O2 Flow Rate FiO2 11/07/18 12:00 97.2 92 18 137/72 (93) 97 11/07/18 09:00 Nasal Cannula 2.0 11/07/18 08:56 75 11/07/18 08:56 75 159/75 11/07/18 08:00 99.3 75 21 159/75 (103) 95 11/07/18 08:00 71 11/07/18 07:00 Room Air 11/07/18 07:00 62 20 Room Air 21 11/07/18 07:00 Room Air 11/07/18 04:00 98.2 64 17 131/65 (87) 94 11/07/18 04:00 54 11/07/18 01:51 Room Air 21 11/07/18 01:51 Room Air 21 11/07/18 00:00 57 11/07/18 00:00 97.5 57 19 138/73 (94) 95 11/06/18 21:47 65 139/54 11/06/18 21:00 Room Air 11/06/18 20:19 56 20 99 Room Air 21 11/06/18 20:08 54 20 93 Room Air 21 11/06/18 20:06 54 20 Room Air 21 11/06/18 20:00 99.0 60 16 139/54 (82) 94 11/06/18 20:00 60 11/06/18 16:00 98.2 57 23 152/66 (94) 96 11/06/18 15:36 60 11/06/18 13:43 64 18 98 Room Air 21 11/06/18 13:39 62 18 94 Room Air 21 Intake and Output 11/06/18 11/07/18 18:59 06:59 Intake Total 100 ml Balance 100 ml Intake Oral 100 ml # Voids 3 1 Microbiology Date/Time Source Procedure Growth Status 11/04/18 21:00 Sputum Gram Stain - Final Complete 11/04/18 21:00 Sputum Culture - Final Jacey Albicans Usual Respiratory Eugenia Complete Current Medications Medications (Trade) Dose Ordered Sig/Regi Route PRN Reason Start Time Stop Time Status Last Admin Dose Admin Acetaminophen (Tylenol) 650 mg Q4H PRN ORAL Mild Pain/Temp > 100.5 11/05/18 23:45 12/03/18 23:44 Al Hydroxide/Mg Hydroxide (Mylanta) 30 ml Q4HR PRN ORAL Abdominal cramps 11/06/18 01:00 12/03/18 23:44 Albuterol/ Ipratropium (Albuterol/ Ipratropium) 3 ml Q6HRT HHN 11/06/18 13:00 11/11/18 12:59 11/06/18 20:16 Alfuzosin HCl (Uroxatrol) 10 mg DAILY ORAL 11/07/18 09:00 12/07/18 08:59 11/07/18 08:57 Aspirin (ASA) 81 mg DAILY ORAL 11/07/18 09:00 12/07/18 08:59 11/07/18 08:56 Clonazepam (KlonoPIN) 0.5 mg BEDTIME PRN ORAL For Anxiety 11/06/18 21:00 11/12/18 18:59 11/06/18 22:21 Clopidogrel Bisulfate (Plavix) 75 mg DAILY ORAL 11/07/18 09:00 12/07/18 08:59 11/07/18 08:57 Dextrose (Dextrose 50%) 25 ml Q30M PRN IV Hypoglycemia 11/05/18 21:45 12/04/18 13:14 Dextrose (Dextrose 50%) 50 ml Q30M PRN IV Hypoglycemia 11/05/18 21:45 2/14/19 13:14 Digoxin (Lanoxin) 0.125 mg DAILY ORAL 11/07/18 09:00 12/07/18 08:59 11/07/18 08:56 Insulin Aspart (NovoLOG) BEFORE MEALS AND HS SUBQ 11/06/18 06:30 12/04/18 16:29 11/07/18 11:40 Magnesium Hydroxide (Mom) 30 ml DAILYPRN PRN ORAL Constipation 11/05/18 23:45 12/03/18 23:44 Metoprolol Tartrate (Lopressor) 25 mg Q12HR ORAL 11/06/18 09:00 12/04/18 08:59 11/07/18 08:56 Pantoprazole (Protonix) 40 mg DAILY ORAL 11/06/18 09:00 12/04/18 08:59 11/07/18 08:56 Paroxetine HCl (Paxil CR) 37.5 mg DAILY ORAL 11/06/18 09:00 12/06/18 08:59 11/07/18 08:56 Rony Severino MD Nov 07, 2018 12:31
--- NOTE | 2018-11-07 15:11 | NUR ---
RD ASSESSMENT & RECOMMENDATIONS SEE CARE ACTIVITY FOR COMPLETE ASSESSMENT DAILY ESTIMATED NEEDS: Needs based on cardiac, DM/ 75kg abw 25-30 kcals/kg 4980-6566 total kcals 1-1.3 g protein/kg 75-98 g total protein 20-25 mL/kg 8209-7304 total fluid mLs NUTRITION DIAGNOSIS: Altered nutrition related lab values R/T diabetes as evidenced by elev BGs (166 283 277), elev POC glu (155-263) CURRENT DIET: CARDIAC, SOFT EASY CHEW PO DIET RECOMMENDATIONS: CCHO MED, LOW NA/ texture as tolerated ADDITIONAL RECOMMENDATIONS: * Calibrated bedscale wt for accurate CBW * Monitor lytes, replete as needed (mag 1.6)
[2018-11-07 16:00] VITALS: BP 155/73
--- NOTE | 2018-11-07 16:58 | NUR ---
CASE MANAGEMENT:REVIEW 11/07/18 SI: PNA. SEPSIS. INFLUENZA A 97.2 92 18 137/72 99% ON 2L/NC IS: ALFUZOSIN PO QD ASA PO QD PLAVIX PO QD DIGOXIN PO QD DUONEB HHN Q6HRS RTC LOPRESSOR PO Q12 : TELEMETRY STATUS DCP: FROM HOME
--- NOTE | 2018-11-07 18:45 | NUR ---
NURSE NOTES: left a message to dr domínguez regarding abg result. awaits callback and new order.
--- NOTE | 2018-11-07 18:50 | NUR ---
NURSE NOTES: dr domínguez called back and acknowledge abg result. ordered stat duplex of the legs.
--- NOTE | 2018-11-07 19:12 | NUR ---
HAND-OFF: Report given to chacho delarosa.
--- NOTE | 2018-11-07 19:30 | NUR ---
NURSE NOTES: Report received from Angelita BROWN. Pt is sitting up at bedside receiving breathing treatment at this time. Pt is awake, alert, and oriented x4. Pt breathing is even and unlabored. IV site noted to be asymptomatic, patent, and intact. Bed placed in lowest position with brake engaged and side rails up x2. Call light and side table placed within reach. Will continue to monitor. Pending STAT venous duplex per MD Ortiz.
[2018-11-07 20:00] VITALS: BP 155/76
[2018-11-07] MEDS: clonazePAM 0.5mg tab ORAL PRN (21:21)
[2018-11-08] VITALS: BP 152/63
[2018-11-08] MEDS: Albuterol/Ipratropium 3ml neb HHN SCH ×4 (01:19→19:05)
[2018-11-08 04:00] VITALS: BP 149/80
[2018-11-08] MEDS: NovoLOG Insulin Flexpen SUBQ SCH ×4 (06:10→21:01)
[2018-11-08 07:39] LABS: BASOPHILS % (AUTO) 0.3 % (0.0-2.0); EOSINOPHILS % (AUTO) 0.5 % (0.0-3.0); HEMATOCRIT 24.3 % (42.0-52.0); HEMOGLOBIN 8.3 G/DL (14.2-18.0); LYMPHOCYTES % (AUTO) 18.9 % (20.0-45.0); MEAN CORPUSCULAR VOLUME 92 FL (80-99); MONOCYTES % (AUTO) 10.3 % (1.0-10.0); PLATELET COUNT 177 K/UL (150-450); RED BLOOD COUNT 2.65 M/UL (4.70-6.10); RED CELL DISTRIBUTION WIDTH 13.7 % (11.6-14.8); WHITE BLOOD COUNT 7.8 K/UL (4.8-10.8)
--- NOTE | 2018-11-08 07:55 | NUR ---
HAND-OFF: Report given to Eva BROWN. Pt is resting in bed in stable condition. No acute distress noted. Endorsed plan of care.
--- NOTE | 2018-11-08 07:56 | NUR ---
NURSE NOTES: Report received from KEVIN Phillips. Pt is resting in bed in semi-rodríguez position. Pt is awake, alert, and oriented x4. Pt breathing is even and unlabored. No signs and symptoms of acute distress at this time. IV site noted to be asymptomatic, patent, and intact. Bed placed in lowest position with brake engaged and two side rails up. Call light and side table placed within reach. Will continue to monitor and follow plan of care.
[2018-11-08 08:00] VITALS: BP 115/67
[2018-11-08 08:21] LABS: ALANINE AMINOTRANSFERASE 71 U/L (12-78); ALBUMIN 2.4 G/DL (3.4-5.0); ALBUMIN/GLOBULIN RATIO 0.6 (1.0-2.7); ALKALINE PHOSPHATASE 70 U/L (46-116); ANION GAP 6 mmol/L (5-15); ASPARTATE AMINO TRANSFERASE 28 U/L (15-37); BILIRUBIN,TOTAL 0.5 MG/DL (0.2-1.0); BLOOD UREA NITROGEN 20 mg/dL (7-18); CALCIUM 8.7 MG/DL (8.5-10.1); CARBON DIOXIDE 26 MMOL/L (21-32); CHLORIDE 108 MMOL/L (98-107); CREATININE 1.2 MG/DL (0.55-1.30); POTASSIUM 3.7 MMOL/L (3.5-5.1); SODIUM 140 MMOL/L (136-145)
[2018-11-08] MEDS: PAROXETINE 12.5 MG ORAL SCH (08:47)
[2018-11-08] MEDS: Aspirin Baby 81mg ORAL SCH (08:48)
[2018-11-08] MEDS: Digoxin 0.125mg tab ORAL SCH (08:48)
[2018-11-08] MEDS: Metoprolol 25mg tab ORAL SCH ×2 (08:48→20:52)
--- NOTE | 2018-11-08 09:33 | NUR ---
SS note Chart reviewed; patient is from home with spouse and currently at baseline independence with P.T. No SW needs or concerns identified at this time.
--- NOTE | 2018-11-08 10:24 | Infectious Diseases Prog Note ---
Assessment/Plan Assessment/Plan antibiotics : none A 1. influenza A URI s/p rx 2. pneumonia unlikely 3. leucocytosis resolved 4. MDS 4. diabetes mellitus P 1. observe off antibiotics Subjective ROS Limited/Unobtainable: Yes Allergies: Coded Allergies: No Known Allergies (Unverified , 11/03/18) Objective Vital Signs Last 24 Hour Vital Signs Date Time Temp Pulse Resp B/P (MAP) Pulse Ox O2 Delivery O2 Flow Rate FiO2 11/08/18 09:00 Nasal Cannula 2.0 11/08/18 08:48 68 11/08/18 08:48 68 115/67 11/08/18 08:40 68 20 99 Nasal Cannula 2.0 28 11/08/18 08:29 70 20 Nasal Cannula 3.0 32 11/08/18 08:29 70 20 96 Nasal Cannula 3.0 32 11/08/18 08:00 98.2 74 20 115/67 (83) 92 11/08/18 08:00 60 11/08/18 04:00 65 11/08/18 04:00 96.6 71 19 149/80 (103) 97 11/08/18 01:27 65 20 99 Nasal Cannula 2.0 28 11/08/18 01:19 63 20 96 Nasal Cannula 3.0 32 11/08/18 00:00 69 11/08/18 00:00 97.0 62 18 152/63 (92) 96 11/07/18 21:22 68 155/76 11/07/18 21:00 Nasal Cannula 3.0 11/07/18 20:00 97.9 73 21 155/76 (102) 98 11/07/18 20:00 75 11/07/18 19:11 70 20 98 Nasal Cannula 2.0 28 11/07/18 19:03 73 20 Nasal Cannula 2.0 28 11/07/18 19:03 73 20 94 Nasal Cannula 2.0 28 11/07/18 16:00 97.9 72 21 155/73 (100) 97 11/07/18 16:00 71 11/07/18 13:46 60 20 99 Nasal Cannula 2.0 28 11/07/18 13:35 68 20 95 Nasal Cannula 2.0 28 11/07/18 12:00 67 11/07/18 12:00 97.2 92 18 137/72 (93) 97 Height (Feet): 5 Height (Inches): 8.00 Weight (Pounds): 160 Respiratory/Chest: lungs clear Cardiovascular: normal rate, regular rhythm, no gallop/murmur Abdomen: soft, non tender Extremities: no edema Laboratory Tests Test 11/07/18 14:35 11/08/18 05:35 Arterial Blood pH 7.440 (7.350-7.450) Arterial Blood Partial Pressure CO2 34.0 mmHg (35.0-45.0) L Arterial Blood Partial Pressure O2 55.5 mmHg (75.0-100.0) L Arterial Blood HCO3 22.6 mmol/L (22.0-26.0) Arterial Blood Oxygen Saturation 84.5 % (95-100) *L Arterial Blood Base Excess -1.2 (-2-2) [place] Test Positive White Blood Count 7.8 K/UL (4.8-10.8) Red Blood Count 2.65 M/UL (4.70-6.10) L Hemoglobin 8.3 G/DL (14.2-18.0) L Hematocrit 24.3 % (42.0-52.0) L Mean Corpuscular Volume 92 FL (80-99) Mean Corpuscular Hemoglobin 31.2 PG (27.0-31.0) H Mean Corpuscular Hemoglobin Concent 34.0 G/DL (32.0-36.0) Red Cell Distribution Width 13.7 % (11.6-14.8) Platelet Count 177 K/UL (150-450) Mean Platelet Volume 7.2 FL (6.5-10.1) Neutrophils (%) (Auto) 70.0 % (45.0-75.0) Lymphocytes (%) (Auto) 18.9 % (20.0-45.0) L Monocytes (%) (Auto) 10.3 % (1.0-10.0) H Eosinophils (%) (Auto) 0.5 % (0.0-3.0) Basophils (%) (Auto) 0.3 % (0.0-2.0) Sodium Level 140 MMOL/L (136-145) Potassium Level 3.7 MMOL/L (3.5-5.1) Chloride Level 108 MMOL/L (98-107) H Carbon Dioxide Level 26 MMOL/L (21-32) Anion Gap 6 mmol/L (5-15) Blood Urea Nitrogen 20 mg/dL (7-18) H Creatinine 1.2 MG/DL (0.55-1.30) Estimat Glomerular Filtration Rate mL/min (>60) Glucose Level 174 MG/DL (74-106) H Calcium Level 8.7 MG/DL (8.5-10.1) Magnesium Level 1.3 MG/DL (1.8-2.4) L Total Bilirubin 0.5 MG/DL (0.2-1.0) Aspartate Amino Transf (AST/SGOT) 28 U/L (15-37) Alanine Aminotransferase (ALT/SGPT) 71 U/L (12-78) Alkaline Phosphatase 70 U/L (46-116) Pro-B-Type Natriuretic Peptide 3331 pg/mL (0-125) H Total Protein 6.2 G/DL (6.4-8.2) L Albumin 2.4 G/DL (3.4-5.0) L Globulin 3.8 g/dL Albumin/Globulin Ratio 0.6 (1.0-2.7) L Current Medications Medications (Trade) Dose Ordered Sig/Regi Route PRN Reason Start Time Stop Time Status Last Admin Dose Admin Acetaminophen (Tylenol) 650 mg Q4H PRN ORAL Mild Pain/Temp > 100.5 11/05/18 23:45 12/03/18 23:44 Al Hydroxide/Mg Hydroxide (Mylanta) 30 ml Q4HR PRN ORAL Abdominal cramps 11/06/18 01:00 12/03/18 23:44 Albuterol/ Ipratropium (Albuterol/ Ipratropium) 3 ml Q6HRT HHN 11/06/18 13:00 11/11/18 12:59 11/08/18 08:28 Alfuzosin HCl (Uroxatrol) 10 mg DAILY ORAL 11/07/18 09:00 12/07/18 08:59 11/08/18 08:48 Aspirin (ASA) 81 mg DAILY ORAL 11/07/18 09:00 12/07/18 08:59 11/08/18 08:48 Clonazepam (KlonoPIN) 0.5 mg BEDTIME PRN ORAL For Anxiety 11/06/18 21:00 11/12/18 18:59 11/07/18 21:21 Clopidogrel Bisulfate (Plavix) 75 mg DAILY ORAL 11/07/18 09:00 12/07/18 08:59 11/08/18 08:48 Dextrose (Dextrose 50%) 25 ml Q30M PRN IV Hypoglycemia 11/05/18 21:45 12/04/18 13:14 Dextrose (Dextrose 50%) 50 ml Q30M PRN IV Hypoglycemia 11/05/18 21:45 12/04/18 13:14 Digoxin (Lanoxin) 0.125 mg DAILY ORAL 11/07/18 09:00 12/07/18 08:59 11/08/18 08:48 Insulin Aspart (NovoLOG) BEFORE MEALS AND HS SUBQ 11/06/18 06:30 12/04/18 16:29 11/08/18 06:10 Magnesium Hydroxide (Mom) 30 ml DAILYPRN PRN ORAL Constipation 11/05/18 23:45 12/03/18 23:44 Magnesium Sulfate 100 ml @ 100 mls/hr Q1H IVPB 11/08/18 10:00 11/08/18 11:59 11/08/18 10:14 Metoprolol Tartrate (Lopressor) 25 mg Q12HR ORAL 11/06/18 09:00 12/04/18 08:59 11/08/18 08:48 Pantoprazole (Protonix) 40 mg DAILY ORAL 11/06/18 09:00 12/04/18 08:59 11/08/18 08:48 Paroxetine HCl (Paxil CR) 37.5 mg DAILY ORAL 11/06/18 09:00 12/06/18 08:59 11/08/18 08:47 Alayna Wolfe MD Nov 08, 2018 10:24
--- NOTE | 2018-11-08 11:12 | Pulmonology Progress Note ---
Assessment/Plan Assessment/Plan IMPRESSION: CHF, atrial fibrillation, leukocytosis, possible pneumonia, positive influenza, thrombocytopenia, hypomagnesemia, mild protein-calorie malnutrition, probable chronic renal failure. hypoxemia PLAN oxygen therapy needed for chronic use patient will need oxygen 13/05 and will need portable concentrator to ambulate around the home care noted iv antibiotics--->discontinued respiratory care dc isolation per ID cxr with clearing of pneumonia oxygen to dc if able check duplex monitor as is dc planning impression, plan, and exam edited and reviewed in detail care discussed with RN Subjective Allergies: Coded Allergies: No Known Allergies (Unverified , 11/03/18) Subjective care noted and reviewed hypoxemia noted spoke to daughter in detail Objective Last 24 Hour Vital Signs Date Time Temp Pulse Resp B/P (MAP) Pulse Ox O2 Delivery O2 Flow Rate FiO2 11/08/18 09:00 Nasal Cannula 2.0 11/08/18 08:48 68 11/08/18 08:48 68 115/67 11/08/18 08:40 68 20 99 Nasal Cannula 2.0 28 11/08/18 08:29 70 20 Nasal Cannula 3.0 32 11/08/18 08:29 70 20 96 Nasal Cannula 3.0 32 11/08/18 08:00 98.2 74 20 115/67 (83) 92 11/08/18 08:00 60 11/08/18 04:00 65 11/08/18 04:00 96.6 71 19 149/80 (103) 97 11/08/18 01:27 65 20 99 Nasal Cannula 2.0 28 11/08/18 01:19 63 20 96 Nasal Cannula 3.0 32 11/08/18 00:00 69 11/08/18 00:00 97.0 62 18 152/63 (92) 96 11/07/18 21:22 68 155/76 11/07/18 21:00 Nasal Cannula 3.0 11/07/18 20:00 97.9 73 21 155/76 (102) 98 11/07/18 20:00 75 11/07/18 19:11 70 20 98 Nasal Cannula 2.0 28 11/07/18 19:03 73 20 Nasal Cannula 2.0 28 11/07/18 19:03 73 20 94 Nasal Cannula 2.0 28 11/07/18 16:00 97.9 72 21 155/73 (100) 97 11/07/18 16:00 71 11/07/18 13:46 60 20 99 Nasal Cannula 2.0 28 11/07/18 13:35 68 20 95 Nasal Cannula 2.0 28 11/07/18 12:00 67 11/07/18 12:00 97.2 92 18 137/72 (93) 97 Intake and Output 11/07/18 11/08/18 19:00 07:00 # Voids 2 1 Objective PHYSICAL EXAMINATION: GENERAL: WDWN male NAD HEENT: Negative. Oropharynx clear NECK: Supple. LUNGS: Moderate breath sounds. no rhonchi or wheeze CARDIAC: Normal S1, S2. Soft systolic murmur. Regular rate and rhythm. ABDOMEN: Soft and nontender. no distention EXTREMITIES: No cyanosis or clubbing. There is mild edema. NEUROLOGIC: Grossly nonfocal. Laboratory Tests 11/07/18 14:35: Arterial Blood pH 7.440, Arterial Blood Partial Pressure CO2 34.0L, Arterial Blood Partial Pressure O2 55.5L, Arterial Blood HCO3 22.6, Arterial Blood Oxygen Saturation 84.5*L, Arterial Blood Base Excess -1.2, [place] Test Positive 11/08/18 05:35: White Blood Count 7.8, Red Blood Count 2.65L, Hemoglobin 8.3L, Hematocrit 24.3L , Mean Corpuscular Volume 92, Mean Corpuscular Hemoglobin 31.2H, Mean Corpuscular Hemoglobin Concent 34.0, Red Cell Distribution Width 13.7, Platelet Count 177, Mean Platelet Volume 7.2, Neutrophils (%) (Auto) 70.0, Lymphocytes (% ) (Auto) 18.9L, Monocytes (%) (Auto) 10.3H, Eosinophils (%) (Auto) 0.5, Basophils (%) (Auto) 0.3, Sodium Level 140, Potassium Level 3.7, Chloride Level 108H, Carbon Dioxide Level 26, Anion Gap 6, Blood Urea Nitrogen 20H, Creatinine 1.2, Estimat Glomerular Filtration Rate , Glucose Level 174H, Calcium Level 8.7 , Magnesium Level 1.3L, Total Bilirubin 0.5, Aspartate Amino Transf (AST/SGOT) 28, Alanine Aminotransferase (ALT/SGPT) 71, Alkaline Phosphatase 70, Pro-B-Type Natriuretic Peptide 3331H, Total Protein 6.2L, Albumin 2.4L, Globulin 3.8, Albumin/Globulin Ratio 0.6L Current Medications Medications (Trade) Dose Ordered Sig/Regi Route PRN Reason Start Time Stop Time Status Last Admin Dose Admin Acetaminophen (Tylenol) 650 mg Q4H PRN ORAL Mild Pain/Temp > 100.5 11/05/18 23:45 12/03/18 23:44 Al Hydroxide/Mg Hydroxide (Mylanta) 30 ml Q4HR PRN ORAL Abdominal cramps 11/06/18 01:00 12/03/18 23:44 Albuterol/ Ipratropium (Albuterol/ Ipratropium) 3 ml Q6HRT HHN 11/06/18 13:00 11/11/18 12:59 11/08/18 08:28 Alfuzosin HCl (Uroxatrol) 10 mg DAILY ORAL 11/07/18 09:00 12/07/18 08:59 11/08/18 08:48 Aspirin (ASA) 81 mg DAILY ORAL 11/07/18 09:00 12/07/18 08:59 11/08/18 08:48 Clonazepam (KlonoPIN) 0.5 mg BEDTIME PRN ORAL For Anxiety 11/06/18 21:00 11/12/18 18:59 11/07/18 21:21 Clopidogrel Bisulfate (Plavix) 75 mg DAILY ORAL 11/07/18 09:00 12/07/18 08:59 11/08/18 08:48 Dextrose (Dextrose 50%) 25 ml Q30M PRN IV Hypoglycemia 11/05/18 21:45 12/04/18 13:14 Dextrose (Dextrose 50%) 50 ml Q30M PRN IV Hypoglycemia 11/05/18 21:45 12/04/18 13:14 Digoxin (Lanoxin) 0.125 mg DAILY ORAL 11/07/18 09:00 12/07/18 08:59 11/08/18 08:48 Insulin Aspart (NovoLOG) BEFORE MEALS AND HS SUBQ 11/06/18 06:30 12/04/18 16:29 11/08/18 06:10 Magnesium Hydroxide (Mom) 30 ml DAILYPRN PRN ORAL Constipation 11/05/18 23:45 12/03/18 23:44 Magnesium Sulfate 100 ml @ 100 mls/hr Q1H IVPB 11/08/18 10:00 11/08/18 11:59 11/08/18 10:14 Metoprolol Tartrate (Lopressor) 25 mg Q12HR ORAL 11/06/18 09:00 12/04/18 08:59 11/08/18 08:48 Pantoprazole (Protonix) 40 mg DAILY ORAL 11/06/18 09:00 12/04/18 08:59 11/08/18 08:48 Paroxetine HCl (Paxil CR) 37.5 mg DAILY ORAL 11/06/18 09:00 12/06/18 08:59 11/08/18 08:47 Leonard Ortiz MD Nov 08, 2018 11:12
--- NOTE | 2018-11-08 11:20 | NUR ---
NURSE NOTES: Per doctor Angel's order, called from [facility], she wanted to provide patient's need for DC plan tomorrow. Her phone number [phone] and the Fax number [phone]. Called and asked Antonia bilingual case manager to contact Ann and provide her the information she needs.
[2018-11-08 12:00] VITALS: BP 135/83
--- NOTE | 2018-11-08 12:30 | NUR ---
NURSE NOTES: Called, left a massage for Dr. Butler and mentioned that the patient's heart rate went down to 34 with 2.6 seconds pauses.
--- NOTE | 2018-11-08 13:30 | Progress Note ---
DATE: 11/07/2018 CARDIOLOGY PROGRESS NOTE SUBJECTIVE: The patient remains in atrial fibrillation with rate controlled. He is less congested with adequate saturations on room air. He still has cough and is on isolation for influenza. OBJECTIVE: VITAL SIGNS: Blood pressure 159/75, earlier 131/65, heart rate 62 to 75, respiratory rate 21, afebrile. LUNGS: Coarse breath sounds. Few rhonchi. HEART: Irregularly irregular rhythm. Normal S1, S2. ABDOMEN: Soft. EXTREMITIES: No edema. LABORATORY DATA: ABG today 7.44, 34, 56 on room air. IMPRESSION: 1. Influenza, pneumonia. 2. Periodic hypoxia. 3. Atrial fibrillation, rate controlled. 4. Ischemic and hypertensive heart disease. 5. Episodes of hypertension, but overall adequate blood pressure control. 6. Diastolic dysfunction with no clinical signs of acute congestive heart failure. 7. Myelodysplastic syndrome. PLAN: 1. Nasal oxygen. 2. Inhaled bronchodilators. 3. Complete antiviral therapy. 4. Monitor and replace electrolytes as needed. 5. Maintain anti-platelet therapy and current cardiovascular regimen. 6. No anticoagulation due to inherent bleeding risks. Rony Butler M.D. DR: DIANE JOB#: [id number] CC:
--- NOTE | 2018-11-08 14:37 | NUR ---
DISCHARGE PLANNING: NOTE INFO RECEIVED FROM NURSING REGARDING HOME O2 SETUP. COLIN SPOKE TO DAGO AT [facility]. INSURANCE INFO, DEMO INFO, H&P, PROGRESS NOTE AND ABGs WERE REQUESTED. COLIN FAXED TO DAGO AT [phone]. COLIN CONFIRMED WITH MAGAN THAT CLINICALS WERE RECEIVED. O2 TO BE DELIVERED TO BEDSIDE (ROOM NUMBER PROVIDED). ETA UNAVAILABLE AT THIS TIME. DAGO>> CONTACT [phone] DC PLANNED FOR 11/09 Addendum: 11/09/18 at 0953 by Antonia Ceh CM COLIN CONFIRMED WITH DAGO THAT O2 WAS DELIVERED TO BEDSIDE.
[2018-11-08 16:00] VITALS: BP 122/68
--- NOTE | 2018-11-08 17:55 | NUR ---
NURSE NOTES: Take off the oxygen, patient oxygen saturation was around %90 after half an hour. Put him back on Nasal cannula.
--- NOTE | 2018-11-08 19:20 | NUR ---
HAND-OFF: Report given to KEVIN Phillips.
[2018-11-08 20:00] VITALS: BP 125/61
[2018-11-08] MEDS: clonazePAM 0.5mg tab ORAL PRN (20:52)
--- NOTE | 2018-11-08 23:15 | Progress Note ---
DATE: 11/08/2018 CARDIOLOGY PROGRESS NOTE SUBJECTIVE: The patient remains in atrial fibrillation, his baseline rhythm. He has had bradycardic episodes during the night. Heart rates in the high 30s, have been asymptomatic. No chest pain or shortness of breath. Less congestion and cough. OBJECTIVE: VITAL SIGNS: Blood pressure 115/67, pulse 68, and respiratory rate 20. LUNGS: Bilateral breath sounds. Few rhonchi. HEART: Irregularly irregular rhythm. Normal S1, S2. ABDOMEN: Soft. EXTREMITIES: No edema. LABORATORY DATA: Pro natriuretic peptide is 3331. Albumin 3.4. White count 7.8 and hemoglobin 8.3. Magnesium 1.3. IMPRESSION: 1. Recovering influenza, pneumonia. 2. Severe hypomagnesemia. 3. Chronic atrial fibrillation. 4. Conduction system disease with bradyarrhythmia. 5. Hypertensive heart disease. 6. Acute on chronic diastolic congestive heart failure. PLAN: 1. Respiratory hygiene. 2. IV magnesium. 3. Maintain current cardiovascular regimen. Presently, no clinical indication for adding diuresis. 4. We will discontinue digoxin. 5. Monitor heart rate and continue beta-blockade. Rony Butler M.D. DR: DIANE JOB#: [id number] CC:
[2018-11-09] VITALS: BP 149/68
[2018-11-09] MEDS: Albuterol/Ipratropium 3ml neb HHN SCH ×3 (01:18→13:00)
[2018-11-09 04:00] VITALS: BP 155/65
[2018-11-09] MEDS: NovoLOG Insulin Flexpen SUBQ SCH ×2 (06:05→12:02)
--- NOTE | 2018-11-09 07:23 | NUR ---
HAND-OFF: Report given to Eva BROWN. Pt is resting in bed in stable condition. No acute distress noted. Endorsed plan of care.
--- NOTE | 2018-11-09 07:24 | NUR ---
NURSE NOTES: Report received from KEVIN Phillips. Pt is sitting in bed, eating his breakfast. Pt is awake, alert, and oriented x4. Pt breathing is even and unlabored with 3 liter Nasal Cannula. No signs and symptoms of acute distress at this time. IV site noted to be asymptomatic, patent, and intact. Bed placed in lowest position with brake engaged and two side rails up. Call light and side table placed within reach. Will continue to monitor and follow plan of care.
[2018-11-09 07:26] LABS: BASOPHILS % (AUTO) 0.5 % (0.0-2.0); EOSINOPHILS % (AUTO) 0.7 % (0.0-3.0); HEMATOCRIT 24.8 % (42.0-52.0); HEMOGLOBIN 8.3 G/DL (14.2-18.0); LYMPHOCYTES % (AUTO) 17.6 % (20.0-45.0); MEAN CORPUSCULAR VOLUME 92 FL (80-99); NEUTROPHILS % (AUTO) 70.3 % (45.0-75.0); PLATELET COUNT 226 K/UL (150-450); RED BLOOD COUNT 2.71 M/UL (4.70-6.10); RED CELL DISTRIBUTION WIDTH 13.9 % (11.6-14.8); WHITE BLOOD COUNT 6.2 K/UL (4.8-10.8)
[2018-11-09 07:32] LABS: ALANINE AMINOTRANSFERASE 60 U/L (12-78); ALBUMIN 2.4 G/DL (3.4-5.0); ALBUMIN/GLOBULIN RATIO 0.6 (1.0-2.7); ALKALINE PHOSPHATASE 68 U/L (46-116); ANION GAP 8 mmol/L (5-15); ASPARTATE AMINO TRANSFERASE 21 U/L (15-37); BILIRUBIN,TOTAL 0.3 MG/DL (0.2-1.0); BLOOD UREA NITROGEN 19 mg/dL (7-18); CALCIUM 8.6 MG/DL (8.5-10.1); CARBON DIOXIDE 28 MMOL/L (21-32); CHLORIDE 105 MMOL/L (98-107); CREATININE 1.3 MG/DL (0.55-1.30); POTASSIUM 3.9 MMOL/L (3.5-5.1); SODIUM 141 MMOL/L (136-145)
[2018-11-09 08:00] VITALS: BP 152/44
[2018-11-09] MEDS: Metoprolol 25mg tab ORAL SCH (08:21)
[2018-11-09] MEDS: PAROXETINE 12.5 MG ORAL SCH (08:22)
[2018-11-09] MEDS: Aspirin Baby 81mg ORAL SCH (08:22)
--- NOTE | 2018-11-09 09:40 | NUR ---
CASE MANAGEMENT:REVIEW 11/09/18 SI: PNA. SEPSIS. INFLUENZA A T 98 HR 67 RR 20 B/P 155/65 SATS 95% ON 3L/NC BUN 19 GLU 260 IS: ALFUZOSIN PO QD ASA PO QD PLAVIX PO QD DIGOXIN PO QD DUONEB HHN Q6HRS RTC LOPRESSOR PO Q12H PROTONIX PO QD : TELEMETRY STATUS DCP: FROM HOME
--- NOTE | 2018-11-09 10:12 | Pulmonology Progress Note ---
Assessment/Plan Assessment/Plan IMPRESSION: CHF, atrial fibrillation, leukocytosis, possible pneumonia, positive influenza, thrombocytopenia, hypomagnesemia, mild protein-calorie malnutrition, probable chronic renal failure. hypoxemia PLAN oxygen therapy needed for chronic use patient will need oxygen 13/05 and will need portable concentrator to ambulate around the home care noted iv antibiotics--->discontinued respiratory care dc isolation per ID cxr with clearing of pneumonia oxygen for home use check duplex monitor as is dc planning today impression, plan, and exam edited and reviewed in detail care discussed with RN Subjective ROS Limited/Unobtainable: Yes Allergies: Coded Allergies: No Known Allergies (Unverified , 11/03/18) Subjective care noted and reviewed hypoxemia spoke to daughter in detail will be taking home Objective Last 24 Hour Vital Signs Date Time Temp Pulse Resp B/P (MAP) Pulse Ox O2 Delivery O2 Flow Rate FiO2 11/09/18 09:00 Nasal Cannula 2.0 11/09/18 08:40 68 18 99 Nasal Cannula 3.0 32 11/09/18 08:35 68 18 Nasal Cannula 3.0 32 11/09/18 08:35 68 18 98 Nasal Cannula 3.0 32 11/09/18 08:21 56 152/44 11/09/18 08:00 98.5 61 20 152/44 (80) 96 11/09/18 04:00 98.0 57 20 155/65 (95) 95 11/09/18 04:00 67 11/09/18 01:28 68 18 98 Nasal Cannula 3.0 32 11/09/18 01:18 68 18 96 Nasal Cannula 3.0 32 11/09/18 00:00 58 11/09/18 00:00 98.0 61 20 149/68 (95) 94 11/08/18 21:00 Nasal Cannula 2.0 11/08/18 20:52 68 125/61 11/08/18 20:00 68 11/08/18 20:00 98.0 82 20 125/61 (82) 96 11/08/18 19:16 65 18 98 Nasal Cannula 3.0 32 11/08/18 19:08 65 18 95 Nasal Cannula 3.0 32 11/08/18 19:07 65 18 Nasal Cannula 3.0 32 11/08/18 16:00 73 11/08/18 16:00 97.6 60 20 122/68 (86) 96 11/08/18 13:27 64 20 99 Nasal Cannula 3.0 32 11/08/18 13:15 53 20 96 Nasal Cannula 3.0 32 11/08/18 12:00 34 11/08/18 12:00 97.2 59 20 135/83 (100) 96 Intake and Output 11/08/18 11/09/18 19:00 07:00 Intake Total 870 ml Output Total 800 ml Balance 870 ml -800 ml Intake Oral 870 ml Output Urine Total 800 ml # Voids 5 2 Objective PHYSICAL EXAMINATION: GENERAL: WDWN male NAD HEENT: Negative. Oropharynx clear NECK: Supple. LUNGS: Moderate breath sounds. no rhonchi or wheeze CARDIAC: Normal S1, S2. Soft systolic murmur. Regular rate and rhythm. ABDOMEN: Soft and nontender. no distention EXTREMITIES: No cyanosis or clubbing. There is mild edema. NEUROLOGIC: Grossly nonfocal. Laboratory Tests 11/09/18 05:29: White Blood Count 6.2, Red Blood Count 2.71L, Hemoglobin 8.3L, Hematocrit 24.8L , Mean Corpuscular Volume 92, Mean Corpuscular Hemoglobin 30.7, Mean Corpuscular Hemoglobin Concent 33.5, Red Cell Distribution Width 13.9, Platelet Count 226, Mean Platelet Volume 7.4, Neutrophils (%) (Auto) 70.3, Lymphocytes (% ) (Auto) 17.6L, Monocytes (%) (Auto) 11.0H, Eosinophils (%) (Auto) 0.7, Basophils (%) (Auto) 0.5, Sodium Level 141, Potassium Level 3.9, Chloride Level 105, Carbon Dioxide Level 28, Anion Gap 8, Blood Urea Nitrogen 19H, Creatinine 1.3, Estimat Glomerular Filtration Rate , Glucose Level 260H, Calcium Level 8.6 , Total Bilirubin 0.3, Aspartate Amino Transf (AST/SGOT) 21, Alanine Aminotransferase (ALT/SGPT) 60, Alkaline Phosphatase 68, Total Protein 6.2L, Albumin 2.4L, Globulin 3.8, Albumin/Globulin Ratio 0.6L, Thyroid Stimulating Hormone (TSH) 1.500, Digoxin Level 0.3L Current Medications Medications (Trade) Dose Ordered Sig/Regi Route PRN Reason Start Time Stop Time Status Last Admin Dose Admin Acetaminophen (Tylenol) 650 mg Q4H PRN ORAL Mild Pain/Temp > 100.5 11/05/18 23:45 12/03/18 23:44 Al Hydroxide/Mg Hydroxide (Mylanta) 30 ml Q4HR PRN ORAL Abdominal cramps 11/06/18 01:00 12/03/18 23:44 Albuterol/ Ipratropium (Albuterol/ Ipratropium) 3 ml Q6HRT HHN 11/06/18 13:00 11/11/18 12:59 11/09/18 08:35 Alfuzosin HCl (Uroxatrol) 10 mg DAILY ORAL 11/07/18 09:00 12/07/18 08:59 11/09/18 08:22 Aspirin (ASA) 81 mg DAILY ORAL 11/07/18 09:00 12/07/18 08:59 11/09/18 08:22 Clonazepam (KlonoPIN) 0.5 mg BEDTIME PRN ORAL For Anxiety 11/06/18 21:00 11/12/18 18:59 11/08/18 20:52 Clopidogrel Bisulfate (Plavix) 75 mg DAILY ORAL 11/07/18 09:00 12/07/18 08:59 11/08/18 08:48 Dextrose (Dextrose 50%) 25 ml Q30M PRN IV Hypoglycemia 11/05/18 21:45 12/04/18 13:14 Dextrose (Dextrose 50%) 50 ml Q30M PRN IV Hypoglycemia 11/05/18 21:45 12/04/18 13:14 Insulin Aspart (NovoLOG) BEFORE MEALS AND HS SUBQ 11/06/18 06:30 12/04/18 16:29 11/09/18 06:05 Magnesium Hydroxide (Mom) 30 ml DAILYPRN PRN ORAL Constipation 11/05/18 23:45 12/03/18 23:44 Metoprolol Tartrate (Lopressor) 25 mg Q12HR ORAL 11/06/18 09:00 12/04/18 08:59 11/08/18 20:52 Pantoprazole (Protonix) 40 mg DAILY ORAL 11/06/18 09:00 12/04/18 08:59 11/09/18 08:22 Paroxetine HCl (Paxil CR) 37.5 mg DAILY ORAL 11/06/18 09:00 12/06/18 08:59 11/09/18 08:22 Leonard Ortiz MD Nov 09, 2018 10:12
[2018-11-09 12:00] VITALS: BP 148/82
--- NOTE | 2018-11-09 13:22 | NUR ---
NURSE NOTES: Patient discharged home with home health per Dr. Ortiz's order. Patient will continue his home medications. All discharge instructions explained to patient and his family member, verbalized understanding. Heart monitor removed and returned to clinical laboratory technician. ID band removed and placed in shredder, IV removed. Patient received all his belongings. Patient left the hospital in stable condition and with private car.
--- NOTE | 2018-11-10 04:30 | Progress Note ---
DATE: 11/09/2018 CARDIOLOGY PROGRESS NOTE SUBJECTIVE: The patient is without chest pain. No shortness of breath. Less bradycardia overnight with discontinued digoxin and expect further improvement as levels dissipate. OBJECTIVE: VITAL SIGNS: Blood pressure 152/44, pulse 56, and respirations 20. Monitor, atrial fibrillation. LUNGS: Good breath sounds. HEART: Irregularly irregular rhythm. ABDOMEN: Soft. No edema. LABORATORY DATA: White count 6, hemoglobin 8.3. Dig level was negligible. BUN 19, creatinine 1.3. IMPRESSION: 1. Chronic atrial fibrillation. 2. Bradyarrhythmia, asymptomatic and of no clinical significance. 3. Hypertensive heart disease with controlled blood pressure. 4. Coronary artery disease with stable angina. 5. Influenza pneumonia, improved. 6. Hypomagnesemia, status post replacement therapy. 7. Severe protein-calorie malnutrition on supplements. 8. Hypoxia, improved and resolving. PLAN: 1. Maintain current cardiovascular regimen. 2. Stable for outpatient followup from cardiovascular standpoint. Rony Butler M.D. DR: MANJEET JOB#: [id number] CC:
--- NOTE | 2018-11-10 22:45 | Diagnostic Imaging Report ---
APPROVED REPORT CPT Code: 58371 Present Symptoms Comments: BILATERAL LEGS PAIN. BILATERAL: Imaging reveals a patent deep venous system bilaterally. There is no evidence of thrombus within the femoral, popliteal or tibial segments. The greater saphenous veins are also within normal limits. Doppler indicates normal spontaneous flow within these segments.
--- NOTE | 2018-11-11 10:36 | Discharge Summary ---
Discharge Summary Discharge Summary _ DATE OF ADMISSION: 11/03/2018 DATE OF DISCHARGE: 11/09/2018 DISCHARGED BY: Dr. Ortiz REASON FOR ADMISSION: 83 years old male with past medical history of myelodysplastic syndrome, atrial fibrillation, coronary artery disease, congestive heart failure, presented to emergency department with cough and congestion. Vital signs revealed fever and tachycardia, pulse oximetry on 3 L of oxygen was stable. Influenza screen test was positive for influenza A. Laboratory workup revealed leukocytosis WBC 20.4, hemoglobin 10.3 hematocrit 30.9 platelet count 126. Stable electrolytes. BUN 21, creatinine 1.7. Glucose 277. Lactic acid 3.7. Magnesium 0.9. Phosphorus 1.8 Initial troponin negative. ECG with atrial fibrillation, Urinalysis revealed no evidence of UTI. Chest x-ray revealed no acute cardiopulmonary pathology. Patient was admitted for further management. CONSULTANTS: hand hose cutter ID specialist Dr. Wolfe internal medicine Dr Spears project construction assistant manager Dr. De Guzman [facility]: Patient admitted to telemetry floor. Home medications were resumed. Patient started on Tamiflu and was placed on droplet isolation. Second troponin was elevated 0.224. Cardiology consulted due to congestive heart failure, elevated troponin and atrial fibrillation in the setting of influenza A, sepsis and lactic acidosis. Cardiology closely followed. Echocardiogram revealed preserved ejection fraction 50-55% with mild left ventricular hypertrophy. Right ventricular systolic pressure of 54 consistent with moderate pulmonary hypertension. Troponin with minimal elevation. No plan for anticoagulation , given the inherent bleeding risk in the setting of myelodysplastic syndrome, as per hand hose cutter. chronic Patient was on antiplatelet therapy with aspirin and Plavix. Beta-samuel was continued and titrated to keep heart rate stable. Patient with evidence of chronic atrial fibrillation on telemetry. Heart rate was controlled with digoxin and beta-samuel. No clinical indication for diuresis as per hand hose cutter. Volumes and cardiorenal parameters were closely monitored. Continuous Yarn Dyeing Machine Operator followed. Supplemental oxygen provided as needed to keep pulse oximetry above 92%. Pulmonary toilet provided as needed. Venous Duplex bilateral lower extremity revealed no evidence of DVT. DVT prophylaxis provided with sequential compression device. Chest x-ray revealed no acute cardiopulmonary pathology. ABG on room air revealed severe hypoxemia-84%. Patient required setting up oxygen therapy for chronic use. Per bookseamer blindstitch patient need oxygen 24/7 and the portable concentration to ambulate around the house. process planner was asked for assistance with arranging oxygen for home use. Infectious disease specialist closely followed. Patient initially was placed on empiric antibiotic and Tamiflu. Blood cultures were negative. Sputum culture revealed Jacey. Patient completed treatment with Tamiflu. CXR revealed no acute cardiopulmonary changes, unlikely pneumonia. Leukocytosis resolved. ID specialist recommended to observe patient off antibiotic and monitor clinically. Oil Recovery Unit Operator followed. Patient had a chronic kidney disease stage III , stable. Renal parameters and electrolytes were closely monitored. Electrolytes corrected as needed. Nephrotoxins were avoided. Renal ultrasound revealed no evidence of obstructive nephropathy. No hydronephrosis. Prior to discharge BUN 19 creatinine 1.3. GI prophylaxis provided. Blood sugar was managed with sliding scale of insulin. Counts were closely monitored , remained at the baseline Nutritional recommendation implemented in plan of care to improve nutritional status. Bowel regimen instituted. Supportive care provided. Patient clinically stabilized and was ready for discharge home with home health services. FINAL DIAGNOSES: Influenza type A Upper respiratory infection Probable sepsis -resolved Leukocytosis-resolved Chronic hypoxia /respiratory failure , requiring oxygen 24/7 arrangement Chronic diastolic congestive heart failure Chronic atrial fibrillation History of myelodysplastic syndrome with immunocompromised state Coronary artery disease with history of coronary stent Hypertensive heart disease Acute myocardial ischemia Lactic acidosis Thrombocytopenia Electrolyte imbalance (hypomagnesemia, hypophosphatemia) Chronic kidney disease stage III. Protein calorie malnutrition DISCHARGE MEDICATIONS: See Medication Reconciliation list. DISCHARGE INSTRUCTIONS: Patient was discharged home with home health services. Follow up with primary care provider in one week. I have been assigned to dictate discharge summary for this account. I was not involved in the patient's management. Helena Quiles NP Nov 11, 2018 10:36
--- NOTE | 2018-11-21 09:11 | Cardiology Report ---
APPROVED REPORT EXAM: Two-dimensional and M-mode echocardiogram with Doppler and color Doppler. INDICATION Atrial Fibrillation M-Mode DIMENSIONS IVSd1.1 (0.7-1.1cm)Left Atrium (MM)4.3 (1.6-4.0cm) LVDd4.6 (3.5-5.6cm)Aortic Root3.6 (2.0-3.7cm) PWd1.1 (0.7-1.1cm)Aortic Cusp Exc.2.1 (1.5-2.0cm) LVDs3.2 (2.5-4.0cm) PWs1.4 cm Normal left ventricular chamber size, systolic function and wall motion. Left ventricular ejection fraction estimated to be 60-65 %. No evidence of pericardial effusion. Mild left ventricular hypertrophy by 2-D. Moderate bi-atrial enlargement. Moderate right ventricular enlargement with mildly depressed right ventricular systolic function. Focal aortic valve sclerosis with adequate cusp excursion. Thickened mitral valve leaflets with normal excursion. Mitral annulus and aortic root calcification. Pulmonic valve not well visualized. Normal tricuspid valve structure. IVC dilated at 2.8 cm with slight physiologic collapse suggestive of increased RA pressure. A color flow and spectral Doppler study was performed and revealed: No aortic regurgitation. Trace mitral regurgitation. Mitral diastolic velocities suggest reduced left ventricular relaxation c/w impaired relaxation grade one diastolic dysfunction. Moderate tricuspid regurgitation. Tricuspid systolic velocities suggests peak right ventricular systolic pressure of 54 mmHg, consistent with moderate pulmonary hypertension. Pulmonic regurgitation present.
--- NOTE | 2019-05-08 12:20 | Cardiology Report ---
APPROVED REPORT EKG Measurement Heart [id number] Undetermined rhythm likely sinus tachy Nonspecific ST and T wave abnormality Abnormal ECG
== END 2018-11-09 13:22 | disposition home health service (06) | DRG 871 ==
LOC: EDBD 16:49 → EMR 17:32 → 2E 19:28 → EDBEDREQ 20:53 → 2W 11-04 00:56 → 2E 11-05 22:32
DX: A41.9 Sepsis, unspecified organism (principal); J10.00 Influenza due to other identified influenza virus with unspecified type of pneumonia; E44.1 Mild protein-calorie malnutrition; I13.0 Hypertensive heart and chronic kidney disease with heart failure and stage 1 through stage 4 chronic kidney disease, or unspecified chronic kidney disease; I50.32 Chronic diastolic (congestive) heart failure; N17.9 Acute kidney failure, unspecified; J96.11 Chronic respiratory failure with hypoxia; E46 Unspecified protein-calorie malnutrition; D69.6 Thrombocytopenia, unspecified; I25.10 Atherosclerotic heart disease of native coronary artery without angina pectoris; Z98.61 Coronary angioplasty status; D46.9 Myelodysplastic syndrome, unspecified; I50.9 Heart failure, unspecified; N18.3 Chronic kidney disease, stage 3 (moderate); Z95.5 Presence of coronary angioplasty implant and graft; I51.3 Intracardiac thrombosis, not elsewhere classified; Z86.73 Personal history of transient ischemic attack (TIA), and cerebral infarction without residual deficits; E83.42 Hypomagnesemia; E11.22 Type 2 diabetes mellitus with diabetic chronic kidney disease; Z68.29 Body mass index [BMI] 29.0-29.9, adult
CPT/HCPCS: 36415; 36600; 71045; 71046; 76770; 80048; 80053; 80162; 80202; 81003; 82550; 82553; 82803; 82962; 83605; 83735; 83880; 84100; 84443; 84484; 85007; 85025; 86710; 87040; 87070; 87205; 93005; 93306; 93970; 94640; 94664; 96361; 96365; 99285; C9399; J1815; J7620